=== PATIENT | female | born 1990 | race Caucasian/White ===

== ENCOUNTER 2018-02-18 06:06 | Day surgery (SDC) | payer OTHER, BC ==
[~2018-02-18 06:06] MED LIST: Lidocaine 1%/Sod Bicarbonate in NS 8.4% 1 ML Syringe IDERM PRN; Sodium Chloride 0.9% 10 ML Syringe FLUSH PRN
[2018-02-18] MEDS: Lactated Ringers 1,000 ML IV SCH ×2 (07:25→12:40)
--- NOTE | 2018-02-18 09:25 | PCM.PREANE ---
Preanesthetic Assessment - Anesthesia/Transfusion/Family Hx Anesthesia History: Prior Anesthesia Without Reaction Family History of Anesthesia Reaction: No Transfusion History: Prior Transfusion Without Reaction - Review of Systems General: No Symptoms Pulmonary: No Symptoms Cardiovascular: No Symptoms Gastrointestinal: No Symptoms Neurological: No Symptoms - Physical Assessment NPO Status Date: 02/17/18 NPO Status Time: 16:30 O2 Sat by Pulse Oximetry: 98 Respiratory Rate: 16 Vital Signs: Last Vital Signs Temp 98.0 F 02/18/18 07:10 Pulse Resp 16 02/18/18 07:10 BP 107/73 02/18/18 07:10 Pulse Ox 98 02/18/18 07:10 Height: 5 ft 6 in Weight: 76.657 kg ASA Class: 1 Mental Status: Alert & Oriented x3 Airway Class: Mallampati = 1 Dentition: Reports: Normal Dentition Thyro-Mental Finger Breadths: 3 Mouth Opening Finger Breadths: 3 ROM/Head Extension: Full Lungs: Clear to Auscultation, Normal Respiratory Effort Cardiovascular: Regular Rate, Regular Rhythm - Allergies Allergies/Adverse Reactions: Allergies Allergy/AdvReac Type Severity Reaction Status Date / Time No Known Allergies Allergy Verified 12/19/16 16:27 - Blood Blood Available: No - Acknowledgements Anesthesia Type Planned: General Anesthesia Pt an Appropriate Candidate for the Planned Anesthesia: Yes Alternatives and Risks of Anesthesia Discussed w Pt/Guardian: Yes Pt/Guardian Understands and Agrees with Anesthesia Plan: Yes PreAnesthesia Questionnaire - Past Health History Medical/Surgical History: Denies Medical/Surgical History Cardiovascular History: Reports: None Respiratory History: Reports: None 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: , Spontaneous , Other (See Below) Other OB/BYN History: D & C in october 2015: abnormal uterine bleeding; "cleaned out fallopian tubes" Oncologic (Cancer) History: Reports: None - Past Surgical History Female Surgical History: Reports: D&C - SUBSTANCE USE Smoking Status *Q: Never Smoker Tobacco Use Within Last Twelve Months: No Second Hand Smoke Exposure: No Days Per Week of Alcohol Use: 0 (seldom) Recreational Drug Use History: No - HOME MEDS Home Medications: Home Meds Vit No.112/Folic Acid [Prenate Chewable Tablet] 1 mg PO DAILY 10/27/15 [History] Ibuprofen 600 mg PO Q4HR PRN #10 tablet 09/16/16 [Rx] - CURRENT (IN HOUSE) MEDS Current Meds: Current Medications Lactated Ringer's (Ringers, Lactated) 1,000 mls @ 125 mls/hr IV ASDIRECTED CLAUDIA Stop: 02/18/18 23:00 Last Admin: 02/18/18 07:25 Dose: 125 mls/hr Lidocaine/Sodium Bicarbonate (Buffered Lidocaine 1% In Ns 8.4%) 0.25 ml IDERM ONETIME PRN PRN Reason: Prior to IV Start Stop: 02/18/18 18:00 Last Admin: 02/18/18 07:24 Dose: 0.25 ml Sodium Chloride (Saline Flush) 10 ml FLUSH ASDIRECTED PRN PRN Reason: Keep Vein Open Stop: 02/18/18 18:00
[2018-02-18] MEDS ORDERED: Dextrose 5% in Water 100 ML ONE (09:41)
[2018-02-18] MEDS ORDERED: Bupivacaine 0.5% 30 ML SDV ONE (09:41)
[2018-02-18] MEDS ORDERED: Methylene Blue 50 MG/10 ML Ampule ONE (09:41)
[2018-02-18] MEDS ORDERED: Ondansetron 4 MG/2 ML SDV ONE (09:45)
[2018-02-18] MEDS ORDERED: Propofol 200 MG/20 ML SDV ONE (09:45)
[2018-02-18] MEDS ORDERED: Rocuronium 50 MG/5 ML Vial ONE (09:45)
[2018-02-18] MEDS ORDERED: ceFAZolin 1 GM Vial ONE (09:46)
[2018-02-18] MEDS ORDERED: Lidocaine 1% 4 ML ONE (09:46)
[2018-02-18] MEDS ORDERED: Midazolam 1 MG/ML 2 ML SDV ONE (09:46)
[2018-02-18] MEDS ORDERED: fentaNYL 250 MCG/5 ML SDV ONE (09:46)
[2018-02-18] MEDS ORDERED: ePHEDrine 50 MG/ML SDV ONE (10:01)
[2018-02-18] MEDS ORDERED: Ketorolac 30 MG/ML SDV ONE ×2 (10:10→11:38)
[2018-02-18] MEDS ORDERED: Lactated Ringers 1,000 ML ONE (10:12)
[2018-02-18] MEDS ORDERED: Dexamethasone 4 MG/ML 5 ML MDV ONE (11:27)
[2018-02-18] MEDS ORDERED: Acetaminophen/oxyCODONE 325-5 MG Tab PO PRN (11:37)
[2018-02-18] MEDS ORDERED: Ondansetron 4 MG/2 ML SDV IVPUSH PRN (11:37)
[2018-02-18] MEDS ORDERED: fentaNYL 100 MCG/2 ML SDV IVPUSH PRN (11:50)
--- NOTE | 2018-02-18 11:51 | PCM.POSTAN ---
POST ANESTHESIA ASSESSMENT - MENTAL STATUS Mental Status: Somnolent - VITAL SIGNS Pulse Rate: 97 SaO2: 97 Resp Rate: 13 Blood Pressure: 118/74 Temperature: 36.7 C - RESPIRATORY Respiratory Status: Respiratory Rate WNL, Airway Patent, O2 Saturation Stable, Supplemental Oxygen - CARDIOVASCULAR CV Status: Pulse Rate WNL, Blood Pressure Stable - GASTROINTESTINAL GI Status: No Symptoms - PAIN Pain Score: 0 - POST OP HYDRATION Hydration Status: Adequate & Stable - OBSERVATIONS Free Text/Narrative:: no anesthesia complications noted
--- NOTE | 2018-02-18 11:58 | PCM.OPNOTE ---
- General Post-Op/Procedure Note Date of Surgery/Procedure: 02/18/18 Operative Procedure(s): Laparoscopy with chromotubation Findings: Floaters bilaterally were patent. The uterus looked normal. There is no evidence of endometriosis. The anterior posterior cul-de-sacs were normal in appearance. The appendix was flaccid and normal. Liver edge was normal. Pre Op Diagnosis: 1. Secondary infertility. 2. Recurrent loss Post-Op Diagnosis: Same Anesthesia Technique: General ET Tube Other Anesthesia Type: Marcaine 0.5%proxy 3-5 mL at each port site. Primary Surgeon: Christo Loza Secondary Surgeon: Phill Lopez Anesthesia Provider: Pranay Wood Retail Operations Manager: Enzo Beltran Reason Retail Operations Manager Was Necessary: Assistants, retraction, patient safety, quality of care Role of Retail Operations Manager: Retraction and assistance Fluid Replacement, Intraop: 1,500 Output, Urine Amount: 100 EBL in mLs: 2 Drain/Tube Comments:: Indwelling bladder catheter during surgery only Complications: None Condition: Good Free Text/Narrative:: Surgery duration: 18 minutes Procedure: The patient was taken to the operating room and placed in supine position on the operating table. Patient was administered 2 g of Ancef preoperatively for infection prophylaxis and had sequential compression stockings in place for DVT prophylaxis. She is administered general endotracheal anesthesia. After adequate anesthesia patient was placed in a dorsal lithotomy position and prepped and draped in usual fashion. Indwelling bladder catheter was placed as was a uterine manipulator. Laparoscopy was then performed. The infraumbilical and suprapubic port sites were infiltrated with Marcaine 0.5% approximately 3-5 mL each. The 5 mm incision was made and verres needle was placed into the upper incision and pneumoperitoneum was established without problems. The laparoscopic sleeve was then placed under direct visualization and the suprapubic port site was developed. The pelvis was evaluated and small wispy adhesions were noted and the area of the appendix and on the left lateral sidewall. These could possibly be a normal reflection of peritoneum. The fallopian tubes appeared to be without adhesions. Methylene blue was instilled into the uterus and was found to spill from both fallopian tubes. There is a paratubal cyst on the right fallopian tube. Is benign in nature and approximate centimeter in diameter. Anterior and posterior cul-de- sacs were found to be normal. Findings otherwise as listed above. At this time time the procedure was discontinued. The laparoscopic sleeve suprapubic area was removed. Pneumoperitoneum was reversed. The upper sleeve was removed. The laparoscopic port site incisions were closed with single interrupted suture of 3-0 Monocryl in a subcuticular fashion. There were further approximated with Dermabond skin glue. Perales catheter and uterine manipulator were removed. Patient was returned to supine position and awakened from general endotracheal anesthesia. She tolerated procedure well and left the operating room in good condition.
[2018-02-18] MEDS ORDERED: Haloperidol Lactate 5 MG/ML SDV IVPUSH PRN (13:13)
[2018-02-18 16:14] VITALS: BP 111/63
== END 2018-02-18 16:05 | disposition home or self-care (01) ==
LOC: JD.SDS 06:06
PROVIDERS: ATTEND Obstetrics & Gynecology
DX: N97.9 Female infertility, unspecified (principal); N96 Recurrent pregnancy loss; Z79.899 Other long term (current) drug therapy
CPT/HCPCS: 49320; 58350; A9270; J0690; J1100; J1630; J1885; J2250; J2405; J3010; J7060; J7120; 00840; J2001; J2704

== ENCOUNTER 2018-12-16 05:27 | Inpatient (IN) | payer BC, OTHER ==
--- NOTE | 2018-12-02 21:53 | PCM.SN ---
- Free Text/Narrative Note: Patient here for decreased movement. Had BPP 8/8 on 11-30-18. Doing better now with more movement. NST reactive. No contractions. Blood sugars have been "acceptable"
[~2018-12-16 05:27] MED LIST changes: +Lactated Ringers 1,000 ML IV SCH; -Lidocaine 1%/Sod Bicarbonate in NS 8.4% 1 ML Syringe IDERM PRN
[2018-12-16] MEDS ORDERED: Citric Acid/Sodium Citrate Solution 30 ML Cup PO ONE (06:00)
[2018-12-16] MEDS ORDERED: Metoclopramide 10 MG/2 ML SDV IVPUSH ONE (06:00)
[2018-12-16] MEDS ORDERED: ceFAZolin 2 GM in Premix Bag 1 BAG IV ONE (06:00)
[2018-12-16] MEDS ORDERED: Lactated Ringers 2,000 ML ONE (06:37)
[2018-12-16] MEDS ORDERED: Oxytocin 10 Units/1 ML SDV ONE ×2 (06:37→09:19)
[2018-12-16] MEDS ORDERED: ceFAZolin 1 GM Vial ONE (06:37)
[2018-12-16] MEDS ORDERED: Ondansetron 4 MG/2 ML SDV ONE (06:37)
[2018-12-16] MEDS ORDERED: Ketorolac 30 MG/ML SDV ONE (06:37)
[2018-12-16] MEDS ORDERED: Phenylephrine/Normal Saline 100 MCG/ML 10 ML Syringe ONE (06:37)
[2018-12-16] MEDS ORDERED: Morphine PF 1 MG/ML Amp ONE (06:38)
[2018-12-16] MEDS ORDERED: Bupivacaine 0.5% 30 ML SDV ONE (06:41)
--- NOTE | 2018-12-16 06:50 | HP ---
DATE OF ADMISSION: 12/16/2018 ADMISSION DIAGNOSES: 38-0/7 week intrauterine , history of 4 losses, breech presentation, primary section. HISTORY OF PRESENT ILLNESS: The patient is a 28-year-old 5, para 0-0-4-0 white female with an REINIER of 12/30/2018, admitted for elective primary section. She is noted to have breech presentation by Lamberto maneuvers and by ultrasound. She also has history of 4 previous spontaneous miscarriages in 1st trimester. The procedure of section, its risks, benefits, alternatives of care including an attempt at vaginal breech versus an attempt at external cephalic version were all discussed with the patient. She appears to understand and wishes to proceed. Consent is signed. 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 REINIER 12/30/2018 based upon an early ultrasound done at 5-6/7 weeks' gestational age on 05/05/2018. It is supported by multiple ultrasounds done since that time as the patient was having weekly BPPs throughout the whole last 10 weeks of the . The patient declined genetic evaluation. Her [place] depression screen score on 10/11/2018 was 5/30. The patient had flu vaccination administered on 09/13/2018. She has a history of gestational diabetes and has been on glyburide 2.5 mg p.o. daily at bedtime with good results. She has also had some iron deficiency and has been on ferrous sulfate 325 mg p.o. 3 times daily with food. She is felt to have questionable intrauterine growth restriction. This has improved towards the end of the here. She also had low progesterone at the beginning of the and was supplemented with progesterone vaginally. She underwent betamethasone therapy to improve the chances of lung maturation in the baby. She plans to bottle-feed. COURSE: The patient was first seen very early in the at approximately 7 weeks and 6 days. She made good fundal height growth during the course of the . Weight went from 174 up to 202.6 pounds for a 28.6-pound weight gain. Her vital signs remained stable throughout the . She reported good activity and testing with biophysical profiles weekly were within normal limits. There were at times slightly decreased JAZZ, but for the most part the patient made fair progress. LABORATORY DATA: Laboratory testingin shows blood to be A positive with a negative antibody screen. First hemoglobin was 13.4 and platelets were 257,000. She is rubella immune. RPR is nonreactive. Urine culture showed no growth after 2 days. Hepatitis B surface antigen and HIV assays were both negative as were Chlamydia and gonorrhea tests. Her second trimester labs showed hemoglobin of 11.2 g/dL and platelets 241,000. Her 1-hour GTT was normal at 91. Group B strep screen is negative. ALLERGIES: None. CURRENT MEDICATIONS: 1. Glyburide 2.5 mg daily. 2. OneTouch Delica lancets. 3. OneTouch culture blue strips. 4. Ferrous sulfate 325 mg p.o. 3 times a day. 5. Kenney aspirin 81 mg dose. 6. vitamins 1 p.o. daily. PAST MEDICAL HISTORY: 1. 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 2. Progesterone deficiency. 3. Seasonal allergies. 4. Some type of urinary tract infection in March 2018 - treated. PAST SURGICAL HISTORY: 1. D and C's for miscarriages, 10/2015 and 07/2016. 2. Laparoscopy, 01/2018. FAMILY HISTORY: Mother is alive and well. Father is alive and well. Two brothers are alive and well. Maternal grandfather is alive and well. Paternal grandmother is alive, but with heart disease. Paternal grandfather is secondary to leukemia. Paternal grandmother is , question on cause. There is a family history of cancer, issues, and anesthesia related issues are not felt to be of concern. Unsure of father's family history. Apparently, grandmother had 3 brothers with MS and 1 sister with MS. SOCIAL HISTORY: The patient is . is Derek Hardy. They live in [place]. She does not use any significant amounts of alcohol, drugs, or tobacco. REVIEW OF SYSTEMS: The patient has no complaints. Baby has been active. SKIN: Negative. HEENT, NECK, AND BACK: Negative. CARDIOVASCULAR: No chest pain or exercise intolerance. RESPIRATORY: No infectious symptoms or shortness of breath. BREASTS: Changes associated with . Manageable. GI: Unremarkable. : Changes associated with . EXTREMITIES/MUSCULOSKELETAL: Occasional bilateral lower extremity edema. Otherwise, unremarkable. NEUROLOGICAL: Unremarkable. PHYSICAL EXAMINATION: GENERAL: The patient is a well-developed, well-nourished, pleasant female, stated age, in no acute distress. She was a centering patient. SKIN: Warm, dry, without lesions. HEENT, NECK, AND BACK: Within normal limits. LUNGS: Clear with good breath sounds in all lung brown. BREASTS: Deferred at this time, having been done at first visit and found to be normal. The patient plans to bottle-feed. ABDOMEN: Protuberant with with fundal height of 37 cm, baby in a breech presentation by Lamberto maneuvers and ultrasound. GENITOURINARY: Last genital exam in clinic showed no evidence of cervical change. EXTREMITIES AND NEUROLOGICAL: Within normal limits. No significant edema noted. ASSESSMENT: 1. Term intrauterine at 38-0/7 weeks' gestational age, admitted for elective primary section because of breech presentation and history of previous losses. 2. Group B strep screen negative. 3. The patient plans to bottle-feed. 4. Routine laboratory testing, SCDs preoperatively and intraoperatively, and applications engineer manufacturing to be in attendance at the time of delivery. PLAN: 1. Primary low uterine segment transverse section through Pfannenstiel skin incision under spinal block. Procedure, risks, benefits, alternatives of care, and followup were discussed in detail with the patient. She appears to understand and wishes to proceed. She has signed a consent. 2. DVT prophylaxis with SCDs. 3. Infection prophylaxis with Ancef 2 g IV preop. 4. CBC, urinalysis, and type and screen for preoperative labs. 5. Lightout Examiner take care of the baby. End dictation on Bernadette Hardy please make copies for [facility] Delivery and make a copy for [facility] in [place]. MMODAL /[id number]
--- NOTE | 2018-12-16 06:58 | PCM.PREANE ---
Preanesthetic Assessment - Anesthesia/Transfusion/Family Hx Anesthesia History: Prior Anesthesia Without Reaction Family History of Anesthesia Reaction: No Transfusion History: No Prior Transfusion(s) Intubation History: Unknown - Review of Systems General: No Symptoms Pulmonary: No Symptoms, Cough Cardiovascular: No Symptoms Gastrointestinal: No Symptoms Neurological: Headache Other: Reports: Easy Bruising, Diabetes (gestational DM) - Physical Assessment NPO Status Date: 12/15/18 NPO Status Time: 21:30 Pulse: 83 O2 Sat by Pulse Oximetry: 97 Respiratory Rate: 16 Blood Pressure: 123/81 Temperature: 36.9 C Vital Signs: Last Vital Signs Temp 36.9 C 12/16/18 05:52 Pulse 83 12/16/18 05:52 Resp 16 12/16/18 05:52 BP 123/81 12/16/18 05:52 Pulse Ox 97 12/16/18 05:52 Height: 1.68 m Weight: 76.657 kg ASA Class: 2 Mental Status: Alert & Oriented x3 Airway Class: Mallampati = 2 Dentition: Reports: Normal Dentition, Caries Thyro-Mental Finger Breadths: 3 Mouth Opening Finger Breadths: 3 ROM/Head Extension: Full Lungs: Clear to Auscultation, Normal Respiratory Effort Cardiovascular: Regular Rate, Regular Rhythm, No Murmurs - Lab Values: Laboratory Last Values WBC 7.55 K/mm3 (3.98-10.04) 12/16/18 06:05 RBC 4.36 M/mm3 (3.98-5.22) 12/16/18 06:05 Hgb 12.0 gm/L (11.2-15.7) 12/16/18 06:05 Hct 36.5 % (34.1-44.9) 12/16/18 06:05 MCV 83.7 fl (79.4-94.8) 12/16/18 06:05 MCH 27.5 pg (25.6-32.2) 12/16/18 06:05 MCHC 32.9 g/dl (32.2-35.5) 12/16/18 06:05 RDW Std Deviation 48.4 fL (36.4-46.3) H 12/16/18 06:05 Plt Count 173 K/mm3 (182-369) L 12/16/18 06:05 MPV 9.9 fl (9.4-12.3) 12/16/18 06:05 Neut % (Auto) 61.3 % (34.0-71.1) 12/16/18 06:05 Lymph % (Auto) 25.4 % (19.3-51.7) 12/16/18 06:05 Wayne % (Auto) 11.0 % (4.7-12.5) 12/16/18 06:05 Eos % (Auto) 1.5 (0.7-5.8) 12/16/18 06:05 Baso % (Auto) 0.3 % (0.1-1.2) 12/16/18 06:05 Neut # (Auto) 4.63 K/mm3 (1.56-6.13) 12/16/18 06:05 Lymph # (Auto) 1.92 K/mm3 (1.18-3.74) 12/16/18 06:05 Wayne # (Auto) 0.83 K/mm3 (0.24-0.36) H 12/16/18 06:05 Eos # (Auto) 0.11 K/mm3 (0.04-0.36) 12/16/18 06:05 Baso # (Auto) 0.02 K/mm3 (0.01-0.08) 12/16/18 06:05 - Allergies Allergies/Adverse Reactions: Allergies Allergy/AdvReac Type Severity Reaction Status Date / Time No Known Allergies Allergy Verified 11/27/18 22:30 - Anesthesia Plan Pre-Op Medication Ordered: None - Acknowledgements Anesthesia Type Planned: Spinal Pt an Appropriate Candidate for the Planned Anesthesia: Yes Alternatives and Risks of Anesthesia Discussed w Pt/Guardian: Yes Pt/Guardian Understands and Agrees with Anesthesia Plan: Yes PreAnesthesia Questionnaire - Past Health History Medical/Surgical History: Denies Medical/Surgical History Cardiovascular History: Reports: None Respiratory History: Reports: None 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: , 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 Other OB/BYN History: D & C in october 2015: abnormal uterine bleeding; "cleaned out fallopian tubes" Endocrine/Metabolic History: Reports: Diabetes, Gestational Hematologic History: Reports: Anemia Oncologic (Cancer) History: Reports: None - Past Surgical History Female Surgical History: Reports: D&C - SUBSTANCE USE Smoking Status *Q: Never Smoker Recreational Drug Use History: No - HOME MEDS Home Medications: Home Meds Aspirin [Halfprin] 81 mg PO DAILY 06/26/18 [History] Ferrous Sulfate [Iron] 1 tab PO DAILY 12/16/18 [History] Vits #93/Iron Fum/FA [ Formula Tablet] 1 tab PO DAILY 12/16/18 [History] glyBURIDE/Metformin HCl [Glyburid-Metformin 1.25-250 mg] 2.5 mg PO DAILY [History] - CURRENT (IN HOUSE) MEDS Current Meds: Current Medications Lactated Ringer's (Ringers, Lactated) 1,000 mls @ 125 mls/hr IV ASDIRECTED CLAUDIA Last Admin: 12/16/18 05:53 Dose: 125 mls/hr Oxytocin 20 unit/ Lactated (Ringer's) 1,002 mls @ 500 mls/hr IV TITRATE CLAUDIA; Protocol Sodium Chloride (Saline Flush) 10 ml FLUSH ASDIRECTED PRN PRN Reason: Keep Vein Open Discontinued Medications Bupivacaine HCl (Marcaine 0.5%) Confirm Administered Dose 30 ml .ROUTE .STK-MED ONE Stop: 12/16/18 06:42 Cefazolin Sodium (Ancef) Confirm Administered Dose 2 gm .ROUTE .STK-MED ONE Stop: 12/16/18 06:38 Citric Acid/Sodium Citrate (Bicitra Solution) 30 ml PO ONETIME ONE Stop: 12/16/18 06:01 Last Admin: 12/16/18 06:01 Dose: 30 ml Cefazolin Sodium/Dextrose 2 gm (/ Premix) 50 mls @ 100 mls/hr IV ONETIME ONE Stop: 12/16/18 06:29 Lactated Ringer's (Ringers, Lactated) Confirm Administered Dose 2,000 mls @ as directed .ROUTE .STK-MED ONE Stop: 12/16/18 06:38 Ketorolac Tromethamine (Toradol) Confirm Administered Dose 30 mg .ROUTE .STK- MED ONE Stop: 12/16/18 06:38 Metoclopramide HCl (Reglan) 10 mg IVPUSH ONETIME ONE Stop: 12/16/18 06:01 Last Admin: 12/16/18 06:01 Dose: 10 mg Morphine Sulfate (Duramorph Pf) Confirm Administered Dose 1 mg .ROUTE .STK-MED ONE Stop: 12/16/18 06:39 Ondansetron HCl (Zofran) Confirm Administered Dose 4 mg .ROUTE .STK-MED ONE Stop: 12/16/18 06:38 Oxytocin (Pitocin) Confirm Administered Dose 10 unit .ROUTE .STK-MED ONE Stop: 12/16/18 06:38 Phenylephrine HCl (Phenylephrine In Ns 100 Mcg/Ml) Confirm Administered Dose 1 mg .ROUTE .STK-MED ONE Stop: 12/16/18 06:38
[2018-12-16] MEDS ORDERED: Ondansetron 4 MG/2 ML SDV IVPUSH PRN (08:00)
[2018-12-16] MEDS ORDERED: diphenhydrAMINE 50 MG/ML SDV IVPUSH PRN (08:00)
[2018-12-16] MEDS ORDERED: HYDROmorphone 0.5 MG/0.5 ML Syringe IVPUSH PRN (08:00)
[2018-12-16] MEDS ORDERED: Haloperidol Lactate 5 MG/ML SDV IVPUSH ONE (08:00)
[2018-12-16] MEDS ORDERED: Phenylephrine 1 MG in Sodium Chloride 0.9% 10 ML IV SCH (08:00)
[2018-12-16] MEDS ORDERED: ePHEDrine 50 MG/ML SDV IVPUSH PRN ×2 (08:00→10:06)
[2018-12-16] MEDS ORDERED: fentaNYL 100 MCG/2 ML SDV IVPUSH PRN (08:00)
--- NOTE | 2018-12-16 08:37 | PCM.POSTAN ---
POST ANESTHESIA ASSESSMENT - MENTAL STATUS Mental Status: Alert - VITAL SIGNS Pulse Rate: 83 SaO2: 96 Resp Rate: 17 Blood Pressure: 111/68 Temperature: 36.6 C - RESPIRATORY Respiratory Status: Respiratory Rate WNL, Airway Patent, O2 Saturation Stable - CARDIOVASCULAR CV Status: Pulse Rate WNL, Blood Pressure Stable - GASTROINTESTINAL GI Status: No Symptoms - POST OP HYDRATION Hydration Status: Adequate & Stable
--- NOTE | 2018-12-16 08:46 | PCM.OPNOTE ---
- General Post-Op/Procedure Note Date of Surgery/Procedure: 12/16/18 Operative Procedure(s): Primary lower uterine segment transverse section through Pfannenstiel skin incision Findings: Baby is in alexus breech presentation. Baby's back to the patient's left. Amniotic fluid was decreased but clear. Uterus tubes and ovaries consistent with term . No abnormalities noted. Pre Op Diagnosis: 1. 38 week intrauterine . 2. Breech presentation. 3. History of recurrent -with losses 4 Post-Op Diagnosis: Same with delivery of a viable, 2810 g (6 pound, 3 ounce) female with Apgars of 8 and 9 at 0804 hrs. on 12/16/2018. Anesthesia Technique: Spinal Other Anesthesia Type: Marcaine 0.5%20 mL local Primary Surgeon: Christo Loza Secondary Surgeon: Phill Lopez Anesthesia Provider: Lara Cooper Reason Mastic Floor Layer Was Necessary: Retraction, assistance, patient safety, quality of care Role of Mastic Floor Layer: Same Fluid Replacement, Intraop: 1,200 Output, Urine Amount: 325 EBL in mLs: 700 Drain/Tube Comments:: Indwelling bladder catheter Complications: None Condition: Good Free Text/Narrative:: Intake & Output 12/15/18 12/16/18 12/16/18 22:59 06:59 14:59 Intake Total 480 Balance 480 Surgery duration: 23 minutes Procedure: The patient is appropriately consented. Patient was transferred to the room and placed in a sitting position. Spinal anesthesia was administered. After confirmation of adequate anesthesia patient was placed in a supine position with a wedge under her right side to facilitate left lateral positioning. The patient was prepped and draped in usual fashion after Perales catheter was placed . The anesthetic was checked and found to be adequate. 20 mL of Marcaine 0.5% was injected locally in the Pfannenstiel incision site. The Pfannenstiel skin incision was then made and carried down through skin, subcutaneous and fascial layers. The fascia was then undermined superiorly and inferiorly to allow for adequate operating room. The recti muscles midline and preperitoneal fat was bluntly dissected. Peritoneal cavity was entered longitudinally. The vesicouterine peritoneum was then incised transversely and bladder flap was developed. Myometrium was incised transversely to the level of the amniotic sac. This incision was extended bilaterally in a blunt fashion. The amniotic sac was then ruptured resulting in clear amniotic fluid. Baby was found to be in a alexus breech presentation. A hand is placed in the low uterine segment and the baby's breech was brought forth through the incision. The baby was completely delivered using fundal pressure and breech extraction technique in a routine fashion. The nose and mouth were bulb suctioned. Baby's cord was clamped x2 cut and baby was handed off to attending airplane designer Dr Amador. Placenta was expressed after cord blood was obtained. Uterus was then exteriorized to allow for easier closure. The cervix was assessed and found to be dilated adequately to allow egress of blood. The uterus was closed in 2 layers. The first layer a running locked suture of 0 Monocryl, the second layer a running locked vertical mattress suture of 0 Monocryl. Tfrkhc-[id number] suture was placed at mid incision to control 1 bleeder. Hemostasis confirmed at this time. Sponge instrument needle counts are correct. The uterus was returned to the abdominal cavity and lateral gutters were cleared of blood. Once again sponge needle counts are correct. The anterior abdominal wall was closed with a #1 PDS suture from angle to angle. The subcutaneous area was found to be free of any bleeders. interrupted sutures of 3-0 Monocryl were used to reapproximate the subcutaneous layer.Skin was closed with a running subcuticular stitch of 3-0 Monocryl in a vertical mattress suture fashion using a Giovanni needle. Prineo mesh/glue was then applied to further approximate the incision. It should be noted that patient received 2 g of Ancef preoperatively for infection prophylaxis and had Pitocin infused after delivery of the placenta to facilitate uterine contraction. She also had sequential compression stockings in place for DVT prophylaxis. Patient was discharged from the operating room in satisfactory condition.
[2018-12-16] MEDS ORDERED: Albuterol 0.083% 2.5 MG/3 ML Neb Soln NEB PRN (08:48)
[2018-12-16] MEDS ORDERED: Lactated Ringers 1,000 ML ONE (09:19)
[2018-12-16] MEDS ORDERED: Docusate Sodium 100 MG Cap PO PRN (10:06)
[2018-12-16] MEDS ORDERED: Lanolin 100% Cream 7 GM Tube TOP PRN (10:06)
[2018-12-16] MEDS ORDERED: Naloxone 0.4 MG/ML SDV IVPUSH PRN (10:06)
[2018-12-16] MEDS ORDERED: Acetaminophen/oxyCODONE 325-5 MG Tab PO PRN (10:06)
[2018-12-16] MEDS ORDERED: Dextrose 5%-Lactated Ringers 1,000 ML IV SCH (10:06)
[2018-12-16] MEDS: Simethicone 80 MG Tab.Chew PO SCH ×4 (10:58→22:41)
[2018-12-16] MEDS: Ondansetron 4 MG/2 ML SDV IV PRN ×2 (10:58→14:56)
[2018-12-16] MEDS: diphenhydrAMINE 50 MG/ML SDV IVPUSH PRN ×2 (12:09→21:24)
[2018-12-16] MEDS: Ibuprofen 800 MG Tab PO SCH ×2 (12:59→21:22)
[2018-12-16] MEDS: Prenatal Multivitamin with Calcium/Folic Acid/Iron Tab PO SCH (14:55)
[2018-12-16] MEDS ORDERED: Metoclopramide 10 MG/2 ML SDV IVPUSH PRN (16:42)
[2018-12-16] MEDS ORDERED: Scopolamine 1.5 MG Transdermal Patch TRDERM PRN (16:42)
[2018-12-16] MEDS: Dextrose 5%-Lactated Ringers 1,000 ML IV SCH (17:03)
[2018-12-17] MEDS: Dextrose 5%-Lactated Ringers 1,000 ML IV SCH (02:10)
[2018-12-17] MEDS: diphenhydrAMINE 50 MG/ML SDV IVPUSH PRN (04:19)
[2018-12-17] MEDS: Ibuprofen 800 MG Tab PO SCH ×3 (05:30→21:05)
[2018-12-17] MEDS: Simethicone 80 MG Tab.Chew PO SCH ×4 (08:28→22:00)
[2018-12-17] MEDS: Prenatal Multivitamin with Calcium/Folic Acid/Iron Tab PO SCH (08:28)
--- NOTE | 2018-12-17 09:12 | PCM.SN ---
- Free Text/Narrative Note: note: Patient is doing well in the period. Minimal lochia, voiding well, ambulated without problems. Nursing without concerns. Patient is afebrile, vital signs are stable. Abdomen is flat, soft, uterus is below the umbilicus and is firm and nontender. Suprapubic to be healing well. No evidence of infection or bleeding. Sounds noted. Legs are nontender. CBC: White blood count is 8.86. Imodium as 9.9. Platelets are 162,000. Assessment: Postop day #1, recovery going well. Plan: Routine care. Patient be discharged home within the next 24- 48 hours.
--- NOTE | 2018-12-17 20:41 | PCM48HPAN ---
Post Anesthesia Note - EVALUATION WITHIN 48HRS OF ANESTHETIC Vital Signs in Normal Range: Yes Patient Participated in Evaluation: Yes Respiratory Function Stable: Yes Airway Patent: Yes Cardiovascular Function Stable: Yes Hydration Status Stable: Yes Pain Control Satisfactory: Yes Nausea and Vomiting Control Satisfactory: Yes (nausea and vomiting yesterday. none today) Mental Status Recovered: Yes Pulse Rate: 67 Resp Rate: 18 Temperature: 99.3 F Blood Pressure: 101/59
[2018-12-18] MEDS: Ibuprofen 800 MG Tab PO SCH (05:20)
[2018-12-18] MEDS: Simethicone 80 MG Tab.Chew PO SCH (08:00)
[2018-12-18] MEDS: Prenatal Multivitamin with Calcium/Folic Acid/Iron Tab PO SCH (08:00)
--- NOTE | 2018-12-18 08:02 | PCM.DCSUM1 ---
Discharge Summary - Hospital Course Free Text/Narrative:: Stephanie is a 28-year-old 5 now para 1041 white femaleWas admitted for elective primary section because of breech presentation, also history of recurrent losses 4 with non-desired to attempt an external cephalic version. Please see admission history and physical. She underwent a primary section on 12/16/2018. She delivered a female infant in a alexus breech presentation via section. Baby had Apgars of 8 and 9, a weight of 2810 g (6 pounds, 3 ounces) and was born at 0804 hrs. on 12/16/2018. Patient had a spinal block for anesthesia. Postoperatively patient has done well. She initially had some nausea but this is controlled with Reglan and scopolamine patch. She is made good bowel bladder and avatar covered. Incision appears to be healing well and is dry. Prineo mesh is still present and the incision. She will have this removed in 2-3 weeks. A she is desiring discharge home. She is bottlefeeding. Her vital signs stable throughout the postoperative course patient has been afebrile. Diagnosis: Stroke: No - Discharge Data Discharge Date: 12/18/18 Discharge Disposition: Home, Self-Care 01 Condition: Good - Patient Summary/Data Operative Procedure(s) Performed: Primary lower uterine segment transverse section through Pfannenstiel skin incision - Patient Instructions Diet: Regular Diet as Tolerated Activity: As Tolerated (No intercourse or tampons until seen back, no lifting greater than 15 pounds. No driving a car times the next week. ) Driving: Do Not Drive ( 1 week ) Wound/Incision Care: Keep Operative Site/Wound Site Clean and Dry Notify Provider of: Fever, Increased Pain, Swelling and Redness, Drainage, Nausea and/or Vomiting - Discharge Plan Home Medications: Home Meds Aspirin [Halfprin] 81 mg PO DAILY 06/26/18 [History] Ferrous Sulfate [Iron] 1 tab PO DAILY 12/16/18 [History] Vits #93/Iron Fum/FA [ Formula Tablet] 1 tab PO DAILY 12/16/18 [History] glyBURIDE/Metformin HCl [Glyburid-Metformin 1.25-250 mg] 2.5 mg PO DAILY [History] Acetaminophen/oxyCODONE [Percocet 325-5 MG] 2 tab PO Q4H PRN #30 tablet [Rx] Ibuprofen [Motrin] 800 mg PO Q8H tablet 12/18/18 [Rx] Vit with Ca/FA/Iron [ Plus Iron] 1 each PO DAILY tablet [Rx] Referrals: Christo Loza MD [Physician] - (Return to clinicDr. Loza or June carbajal CNP, in 3 weeks.) - Discharge Summary/Plan Comment DC Time >30 min.: No Discharge Summary/Plan Comment: Discharge instructions: 1. Discharge home 2. Diet, activity and follow-up discussed with patient. Recommend nursing diet with increased calories and calcium. 3. Precautions given concern increased pain, bleeding, temperature, signs/ symptoms of DVT/PE. 4. Medications per home medication was printed, discussed with and given to the patient. 5. Return to clinic-Dr. Loza or June carbajal CNP-[facility] [place] in 3 weeks. Diagnosis: 1. Term -alexus breech -delivered by primary section Condition: Good - Patient Data Vitals - Most Recent: Last Vital Signs Temp 36.8 C 12/18/18 02:56 Pulse 68 12/18/18 02:56 Resp 14 12/18/18 02:56 BP 113/60 12/18/18 02:56 Pulse Ox 98 12/18/18 02:56 Weight - Most Recent: 76.657 kg I&O - Last 24 hours: Intake & Output 12/17/18 12/18/18 12/18/18 22:59 06:59 14:59 Output Total 600 Balance -600 Med Orders - Current: Current Medications Diphenhydramine HCl (Benadryl) 25 mg IVPUSH Q6H PRN PRN Reason: Itching or Nausea Last Admin: 12/17/18 04:19 Dose: 25 mg Docusate Sodium (Colace) 100 mg PO Q12H PRN PRN Reason: Constipation Emollient Ointment (Lansinoh Hpa) 0 gm TOP ASDIRECTED PRN PRN Reason: Sore Nipples Ephedrine Sulfate (Ephedrine Sulfate) 5 mg IVPUSH SEECOMMENT PRN PRN Reason: Other Dextrose/Lactated Ringer's (Dextrose 5%-Lactated Ringers) 1,000 mls @ 125 mls/ hr IV ASDIRECTED [facility] Last Admin: 12/17/18 02:10 Dose: 125 mls/hr Ibuprofen (Motrin) 800 mg PO Q8H [facility] Last Admin: 12/18/18 05:20 Dose: 800 mg Metoclopramide HCl (Reglan) 10 mg IVPUSH Q6H PRN PRN Reason: Nausea/Vomiting Last Admin: 12/16/18 18:30 Dose: 10 mg Naloxone HCl (Narcan) 0.1 mg IVPUSH SEECOMMENT PRN PRN Reason: Respiratory Depression Ondansetron HCl (Zofran) 4 mg IV Q4H PRN PRN Reason: Nausea/Vomiting Last Admin: 12/16/18 14:56 Dose: 4 mg Oxycodone/Acetaminophen (Percocet 325-5 Mg) 2 tab PO Q4H PRN PRN Reason: Pain (moderate 4-6) Prenat Multivit/[place]/Iron/Folic Ac ( Plus Iron) 1 each PO DAILY [facility] Last Admin: 12/17/18 08:28 Dose: 1 each Scopolamine (Transderm-Scop) 1.5 mg TRDERM Q72H PRN PRN Reason: Nausea/Vomiting Last Admin: 12/16/18 17:05 Dose: 1.5 mg Simethicone (Simethicone) 80 mg PO PCBED [facility] Last Admin: 12/17/18 22:00 Dose: 80 mg Discontinued Medications Albuterol (Proventil Neb Soln) 2.5 mg NEB ONETIME PRN PRN Reason: Cough Stop: 12/16/18 11:30 Last Admin: 12/16/18 09:05 Dose: 2.5 mg Bupivacaine HCl (Marcaine 0.5%) Confirm Administered Dose 30 ml .ROUTE .STK-MED ONE Stop: 12/16/18 06:42 Last Admin: 12/16/18 08:01 Dose: 20 ml Cefazolin Sodium (Ancef) Confirm Administered Dose 2 gm .ROUTE .STK-MED ONE Stop: 12/16/18 06:38 Citric Acid/Sodium Citrate (Bicitra Solution) 30 ml PO ONETIME ONE Stop: 12/16/18 06:01 Last Admin: 12/16/18 06:01 Dose: 30 ml Diphenhydramine HCl (Benadryl) 25 mg IVPUSH Q6H PRN PRN Reason: pruritis Ephedrine Sulfate (Ephedrine Sulfate) 5 mg IVPUSH ASDIRECTED PRN PRN Reason: Hypotension Fentanyl (Sublimaze) 50 mcg IVPUSH Q5M PRN PRN Reason: Pain Haloperidol Lactate (Haldol) 1 mg IVPUSH ONETIME ONE Stop: 12/16/18 08:01 Hydromorphone HCl (Dilaudid) 0.5 mg IVPUSH Q15M PRN PRN Reason: Pain (severe 7-10) Cefazolin Sodium/Dextrose 2 gm (/ Premix) 50 mls @ 100 mls/hr IV ONETIME ONE Stop: 12/16/18 06:29 Lactated Ringer's (Ringers, Lactated) 1,000 mls @ 125 mls/hr IV ASDIRECTED [facility] Last Admin: 12/16/18 05:53 Dose: 125 mls/hr Oxytocin 20 unit/ Lactated (Ringer's) 1,002 mls @ 500 mls/hr IV TITRATE [facility]UD[facility]; Protocol Lactated Ringer's (Ringers, Lactated) Confirm Administered Dose 2,000 mls @ as directed .ROUTE .STK-MED ONE Stop: 12/16/18 06:38 Phenylephrine HCl 1 mg/ Sodium (Chloride) 10.1 mls @ 1 mls/sec IV TITRATE CLAUDIA; Protocol Lactated Ringer's (Ringers, Lactated) Confirm Administered Dose 1,000 mls @ as directed .ROUTE .STK-MED ONE Stop: 12/16/18 09:20 Dextrose/Lactated Ringer's (Dextrose 5%-Lactated Ringers) 1,000 mls @ 125 mls/ hr IV ASDIRECTED [facility] Stop: 12/16/18 18:05 Last Admin: 12/16/18 12:00 Dose: 125 mls/hr Ketorolac Tromethamine (Toradol) Confirm Administered Dose 30 mg .ROUTE .STK- MED ONE Stop: 12/16/18 06:38 Metoclopramide HCl (Reglan) 10 mg IVPUSH ONETIME ONE Stop: 12/16/18 06:01 Last Admin: 12/16/18 06:01 Dose: 10 mg Morphine Sulfate (Duramorph Pf) Confirm Administered Dose 1 mg .ROUTE .STK-MED ONE Stop: 12/16/18 06:39 Ondansetron HCl (Zofran) Confirm Administered Dose 4 mg .ROUTE .STK-MED ONE Stop: 12/16/18 06:38 Ondansetron HCl (Zofran) 4 mg IVPUSH ONETIME PRN PRN Reason: Nausea/Vomiting Oxytocin (Pitocin) Confirm Administered Dose 10 unit .ROUTE .STK-MED ONE Stop: 12/16/18 06:38 Oxytocin (Pitocin) Confirm Administered Dose 10 unit .ROUTE .STK-MED ONE Stop: 12/16/18 09:20 Phenylephrine HCl (Phenylephrine In Ns 100 Mcg/Ml) Confirm Administered Dose 1 mg .ROUTE .STK-MED ONE Stop: 12/16/18 06:38 Sodium Chloride (Saline Flush) 10 ml FLUSH ASDIRECTED PRN PRN Reason: Keep Vein Open
[2018-12-18 10:39] VITALS: BP 114/71
== END 2018-12-18 10:04 | disposition home or self-care (01) | DRG 788 ==
LOC: JD.OB 05:27
PROVIDERS: ADMIT Obstetrics & Gynecology; ATTEND Obstetrics & Gynecology
PROC: 10D00Z1 Extraction of Products of Conception, Low, Open Approach (ICD-10-PCS; principal; 2018-12-16)
PROC: 6A550ZT Pheresis of Cord Blood Stem Cells, Single (ICD-10-PCS; principal; 2018-12-16)
DX: O32.1XX0 Maternal care for breech presentation, not applicable or unspecified (principal); Z37.0 Single live birth; Z3A.38 38 weeks gestation of pregnancy; O24.425 Gestational diabetes mellitus in childbirth, controlled by oral hypoglycemic drugs; O36.5930 Maternal care for other known or suspected poor fetal growth, third trimester, not applicable or unspecified; O99.02 Anemia complicating childbirth; D50.9 Iron deficiency anemia, unspecified; O36.8130 Decreased fetal movements, third trimester, not applicable or unspecified; O90.89 Other complications of the puerperium, not elsewhere classified; R11.2 Nausea with vomiting, unspecified; Z79.899 Other long term (current) drug therapy; Z79.82 Long term (current) use of aspirin
CPT/HCPCS: 01961; 36415; 59025; 82962; 85025; 86592; 86850; 86900; 86901; 94640; 94762; A9270-GY; J0690; J1200; J1885; J2274; J2370; J2405; J2590; J2765; J3490; J7042; J7120

== ENCOUNTER 2020-06-08 12:01 | Emergency (ER) | payer BC, OTHER ==
[2020-06-08] MEDS ORDERED: Sodium Chloride 0.9% 10 ML Syringe FLUSH PRN (12:10)
[2020-06-08 12:14] VITALS: BP 129/88; PULSE 73
--- NOTE | 2020-06-08 12:29 | EDM.PDOC ---
ED HPI GENERAL MEDICAL PROBLEM - General Chief Complaint: WATER ATTENDANT Problem Stated Complaint: SHARP PAIN (8WEEK ) Time Seen by Provider: 06/08/20 12:05 Source of Information: Reports: Patient, Old Records, RN Notes Reviewed History Limitations: Reports: No Limitations - History of Present Illness INITIAL COMMENTS - FREE TEXT/NARRATIVE: Patient is a 29-year-old female who presents to the ED for evaluation of sharp lower abdominal pain. Patient notes she is 8 weeks . 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 WATER ATTENDANT is Dr. Loza. Patient notes that her last menstrual period was April 18. Patient states that since around night, she is having some sharp intermittent pains in her low abdomen, she states nothing really makes it worse, but getting off of her feet makes this feel better. She denies any other sick-like symptoms, fever/chills, cough/shortness of breath, nausea/vomiting/diarrhea, states that her last good bowel movement was yesterday. She denies any dysuria, urinary frequency or urgency. She further denies any vaginal bleeding or discharge. Patient states she has not taken any sort of medication for the pain. Lower Abdomen Pain Score (Numeric/FACES): 6 - Related Data Allergies Allergy/AdvReac Type Severity Reaction Status Date / Time No Known Allergies Allergy Verified 06/08/20 12:13 Home Meds: Home Meds Aspirin [Halfprin] 81 mg PO DAILY 06/26/18 [History] Vit with Ca/FA/Iron [ Plus Iron] 1 each PO DAILY tablet 12/18/18 [Rx] Past Medical History WATER ATTENDANT History: Reports: , Spontaneous (6 spontaneous abortions) : 8 Para: 1 (A-6) Other WATER ATTENDANT History: D & C in october 2015: abnormal uterine bleeding; "cleaned out fallopian tubes" Endocrine/Metabolic History: Reports: Diabetes, Gestational Hematologic History: Reports: Anemia - Past Surgical History Female Surgical History: Reports: D&C Social & Family History - Tobacco Use Smoking Status *Q: Never Smoker Second Hand Smoke Exposure: No - Caffeine Use Caffeine Use: Reports: None - Recreational Drug Use Recreational Drug Use: No ED ROS GENERAL - Review of Systems Review Of Systems: Comprehensive ROS is negative, except as noted in HPI. ED EXAM - Physical Exam Exam: See Below Exam Limited By: No Limitations General Appearance: Alert, WD/WN, No Apparent Distress Eye Exam: Bilateral Eye: EOMI, Normal Inspection, PERRL Throat/Mouth: Normal Inspection, Normal Lips, Normal Teeth, Normal Gums, Normal Oropharynx, Normal Voice, No Airway Compromise Head: Atraumatic, Normocephalic Neck: Normal Inspection Respiratory/Chest: No Respiratory Distress, Lungs Clear, Normal Breath Sounds, No Accessory Muscle Use, Chest Non-Tender Cardiovascular: Normal Peripheral Pulses, Regular Rate, Rhythm, No Edema, No Murmur GI/Abdominal Exam: Normal Bowel Sounds, No Distention, No Mass, Tender (slight epigastric tenderness, but no obvious lower abdomen tenderness. McBurney point is negative, Rosving's negative.) Heart Tones: Not [place] Movement: Not Appreciated Extremities: Normal Inspection, Normal Capillary Refill Neurological: Alert, Oriented, Normal Cognition, No Motor/Sensory Deficits Psychiatric: Normal Affect, Normal Mood Skin Exam: Warm, Dry, Intact, Normal Color, No Rash Course - Vital Signs Last Recorded V/S: Last Vital Signs Temp 97 F 06/08/20 12:10 Pulse 73 06/08/20 12:10 Resp 16 06/08/20 12:10 BP 129/88 06/08/20 12:10 Pulse Ox 98 06/08/20 12:10 - Orders/Labs/Meds Orders: Active Orders 24 hr Category Date Time Status Peripheral IV Care [RC] . DIRECTED Care 06/08/20 12:11 Active OB Transvaginal [US] Stat Exams 06/08/20 12:11 Taken Sodium Chloride 0.9% [Saline Flush] Med 06/08/20 12:10 Active 10 ml FLUSH ASDIRECTED PRN Peripheral IV Insertion Adult [OM.PC] Stat Oth 06/08/20 12:11 Ordered Medication Orders Sodium Chloride (Saline Flush) 10 ml FLUSH ASDIRECTED PRN PRN Reason: Keep Vein Open Labs: Laboratory Tests 06/08/20 06/08/20 06/08/20 Range/Units 12:32 12:32 12:32 WBC 6.70 (3.98-10.04) K/mm3 RBC 4.77 (3.98-5.22) M/mm3 Hgb 12.5 D (11.2-15.7) gm/dl Hct 37.6 (34.1-44.9) % MCV 78.8 L D (79.4-94.8) fl MCH 26.2 (25.6-32.2) pg MCHC 33.2 (32.2-35.5) g/dl RDW Std Deviation 40.5 (36.4-46.3) fL Plt Count 255 D (182-369) K/mm3 MPV 9.8 (9.4-12.3) fl Neut % (Auto) 60.4 (34.0-71.1) % Lymph % (Auto) 26.9 (19.3-51.7) % [place] % (Auto) 9.3 (4.7-12.5) % Eos % (Auto) 3.0 (0.7-5.8) Baso % (Auto) 0.4 (0.1-1.2) % Neut # (Auto) 4.05 (1.56-6.13) K/mm3 Lymph # (Auto) 1.80 (1.18-3.74) K/mm3 [place] # (Auto) 0.62 H (0.24-0.36) K/mm3 Eos # (Auto) 0.20 (0.04-0.36) K/mm3 Baso # (Auto) 0.03 (0.01-0.08) K/mm3 HCG, Quant 40058.0 mIU/mL Urine Color (Yellow) Urine Appearance (Clear) Urine pH (5.0-8.0) Ur Specific [place] (1.005-1.030) Urine Protein (Negative) Urine Glucose (UA) (Negative) Urine Ketones (Negative) Urine Occult Blood (Negative) Urine Nitrite (Negative) Urine Bilirubin (Negative) Urine Urobilinogen (0.2-1.0) Ur Leukocyte Esterase (Negative) Urine RBC (0-5) /hpf Urine WBC (0-5) /hpf Ur Epithelial Cells (0-5) /hpf Urine Bacteria (FEW) /hpf Urine Mucus (FEW) /hpf Blood Type A POSITIVE Gel Antibody Screen Negative 06/08/20 Range/Units 12:40 WBC (3.98-10.04) K/mm3 RBC (3.98-5.22) M/mm3 Hgb (11.2-15.7) gm/dl Hct (34.1-44.9) % MCV (79.4-94.8) fl MCH (25.6-32.2) pg MCHC (32.2-35.5) g/dl RDW Std Deviation (36.4-46.3) fL Plt Count (182-369) K/mm3 MPV (9.4-12.3) fl Neut % (Auto) (34.0-71.1) % Lymph % (Auto) (19.3-51.7) % [place] % (Auto) (4.7-12.5) % Eos % (Auto) (0.7-5.8) Baso % (Auto) (0.1-1.2) % Neut # (Auto) (1.56-6.13) K/mm3 Lymph # (Auto) (1.18-3.74) K/mm3 [place] # (Auto) (0.24-0.36) K/mm3 Eos # (Auto) (0.04-0.36) K/mm3 Baso # (Auto) (0.01-0.08) K/mm3 HCG, Quant mIU/mL Urine Color Yellow (Yellow) Urine Appearance Clear (Clear) Urine pH 6.5 (5.0-8.0) Ur Specific [place] 1.015 (1.005-1.030) Urine Protein Negative (Negative) Urine Glucose (UA) Negative (Negative) Urine Ketones Negative (Negative) Urine Occult Blood Negative (Negative) Urine Nitrite Negative (Negative) Urine Bilirubin Negative (Negative) Urine Urobilinogen 0.2 (0.2-1.0) Ur Leukocyte Esterase 1+ H (Negative) Urine RBC 0-5 (0-5) /hpf Urine WBC 0-5 (0-5) /hpf Ur Epithelial Cells 0-5 (0-5) /hpf Urine Bacteria Few (FEW) /hpf Urine Mucus Few (FEW) /hpf Blood Type Gel Antibody Screen Meds: Medications Generic Name Dose Route Start Last Admin Trade Name Freq PRN Reason Stop Dose Admin Sodium Chloride 10 ml 06/08/20 12:10 Saline Flush FLUSH ASDIRECTED PRN Keep Vein Open - Re-Assessments/Exams Free Text/Narrative Re-Assessment/Exam: 06/08/20 12:30 Patient presents to the ED for the evaluation of her lower abdominal pain, along with being 8 weeks . We will get transvaginal ultrasound, and basic labs to evaluate for intrauterine , versus otherwise. Also urinalysis to rule out bladder infection of sorts. 06/08/20 13:41 Urinalysis is not suggestive of UTI, hCG is 18,236, patient's blood type is a positive. Ultrasound is done, demonstrating a single living intrauterine gestation, with a gestational sac measuring 1.5 cm. heart rate is 112 bpm. There are 2 small subchorionic hemorrhages present measuring 1.7 x 0.7 x 1.6 cm and 2.4 x 0.5 x 0.8 cm. Average gestational age is 6 weeks 0-days noted on ultrasound. There is also a right ovarian cyst present measuring 2.5 x 2.5 x 2.0 cm, and a small left adnexal cyst measuring 1.9 x 1.8 x 1.9 cm. Departure - Departure Time of Disposition: 13:42 Disposition: Home, Self-Care 01 Condition: Good Clinical Impression: Abdominal pain affecting - Discharge Information *PRESCRIPTION DRUG MONITORING PROGRAM REVIEWED*: No *COPY OF PRESCRIPTION DRUG MONITORING REPORT IN PATIENT SCARLET: No Instructions: Abdominal Pain During , [id number] Referrals: Christo Loza MD [Primary Care Provider] - Forms: ED Department Discharge, ED Return to Work/School Form Additional Instructions: You were evaluated in the ER today regarding your abdominal pain in . You did have some labs drawn, and these were within normal limits, your hCG level was 18,236 , your blood type is A+. Your ultrasound demonstrated a single intrauterine gestation with a heart rate of 112 bpm. Ultrasound also demonstrated a gestational age of around 6 weeks 0 days. There is also 2 small subchorionic hemorrhages present, one measuring 1.7 x 0.7 x 1.6 cm, and 2.4 x 0.5 x 0.8 cm. There are also 2 ovarian cysts identified, one on the right ovary measuring 2.5 x 2.5 x 2.0 cm. And 1 on the left adnexa, or fallopian tube, measuring 1.9 x 1.8 x 1.9 cm. This could be causing some of the pain as well, you can try 650 mg Tylenol every 6 hours as needed for further pain relief. Do not exceed 4000 mg Tylenol in a 24-hour time span. Recommend that you do not lift anything heavier than a gallon of milk (5 lbs), do not engage in sexual activities, try to get as much pelvic rest as possible for the next few days. Please try not to exert yourself, rest and relax, and take it easy. If you are bleeding through more than 1-2 maxi pads every couple hours, this would be cause for concern to return to the ER for immediate management. Please follow up with your WATER ATTENDANT at your next scheduled appointment. You did indicate that this is on 12 June. Please return to the ED at any time if your symptoms change or worsen. Sepsis Event Note (ED) - Evaluation Sepsis Screening Result: No Definite Risk - Focused Exam Vital Signs: Vital Signs Temp Pulse Resp BP Pulse Ox 06/08/20 12:10 97 F 73 16 129/88 98 - My Orders Last 24 Hours: My Active Orders 06/08/20 12:10 Sodium Chloride 0.9% [Saline Flush] 10 ml FLUSH ASDIRECTED PRN 06/08/20 12:11 Peripheral IV Care [RC] . DIRECTED OB Transvaginal [US] Stat Peripheral IV Insertion Adult [OM.PC] Stat - Assessment/Plan Last 24 Hours: My Active Orders 06/08/20 12:10 Sodium Chloride 0.9% [Saline Flush] 10 ml FLUSH ASDIRECTED PRN 06/08/20 12:11 Peripheral IV Care [RC] . DIRECTED OB Transvaginal [US] Stat Peripheral IV Insertion Adult [OM.PC] Stat
--- NOTE | 2020-06-10 06:48 | US ---
1st trimester obstetrical ultrasound: Multiple real-time images were obtained transvaginally. Comparison: No previous study for current . Dates: LMP: LMP given as 04/18/20, REINIER 01/23/21, gestational 8 7 weeks 2 days Current ultrasound: REINIER 02/01/21, gestational 8 6 weeks 0 days Single intrauterine gestational sac is seen. Small pole and yolk sac are noted. 2 small subchorionic hemorrhages are noted. Small adnexal cyst measuring 1.9 cm. Small amount of free fluid is seen. Maternal adnexa and ovaries are otherwise unremarkable. Measurements: [place]-rump length: 0.36 cm - 6 weeks 0 days Heart rate: 112 bpm Impression: 1. Single intrauterine gestation. Dates as noted above. 2. Other findings which are most likely be incidental as described above. 3. Low heart rate most likely relating to gestational age. Diagnostic code #2 This report was dictated in MDT I agree with preliminary report from [facility], finalized on 06/08/20, 2:34 PM Central Daylight Time
== END 2020-06-08 14:00 | disposition home or self-care (01) ==
LOC: JD.ED 12:01
DX: O99.89 Other specified diseases and conditions complicating pregnancy, childbirth and the puerperium (principal); R10.30 Lower abdominal pain, unspecified; Z79.82 Long term (current) use of aspirin; Z3A.08 8 weeks gestation of pregnancy
CPT/HCPCS: 36415; 76817; 76817-26; 81001; 84702; 85025; 86850; 86900; 86901; 99283; 99284-25

== ENCOUNTER 2020-06-23 12:49 | Emergency (ER) | payer BC ==
[~2020-06-23 12:49] MED LIST changes: -Lactated Ringers 1,000 ML IV SCH; +Misoprostol 200 MCG Tab ONE; -Sodium Chloride 0.9% 10 ML Syringe FLUSH PRN
[2020-06-23] MEDS ORDERED: Sodium Chloride 0.9% 10 ML Syringe FLUSH PRN (13:05)
[2020-06-23] MEDS ORDERED: HYDROmorphone 0.5 MG/0.5 ML Syringe IVPUSH ONE ×3 (13:10→15:44)
[2020-06-23] MEDS ORDERED: Ondansetron 4 MG/2 ML SDV IVPUSH ONE ×2 (13:10→15:44)
[2020-06-23] MEDS ORDERED: Sodium Chloride 0.9% 1,000 ML IV SCH ×2 (13:15→15:15)
--- NOTE | 2020-06-23 13:31 | EDM.PDOC ---
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 Symptoms began about 20 minutes prior to coming to ER. She states the bleeding was substantial enough to fill her underwear. Cramping began at the same time as the bleeding. 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 States her last miscarriage was about 2 years ago. She was seen in this emergency department about 2 weeks ago with complaints of sharp pelvic pain, but had no bleeding at that time. She did see her PETROLOGY TEACHER, Dr. Loza, on 12 June to confirm viability of the . She was told that everything was okay at that time. She denies any other symptoms including lightheadedness, fever, chills, nausea, vomiting, or diarrhea. 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 Denies: Fever, Chills HEENT: Reports: No Symptoms Respiratory: Reports: No Symptoms Cardiovascular: Reports: No Symptoms Endocrine: Reports: No Symptoms GI/Abdominal: Reports: No Symptoms : Reports: Other (Vaginal bleeding and pelvic cramping) Musculoskeletal: Reports: No Symptoms Skin: Reports: No Symptoms Neurological: Reports: No Symptoms Psychiatric: Reports: No Symptoms Hematologic/Lymphatic: Reports: No Symptoms Immunologic: Reports: No Symptoms ED EXAM - Physical Exam Exam: See Below Exam Limited By: No Limitations General Appearance: Alert, Moderate Distress Respiratory/Chest: No Respiratory Distress, Lungs Clear, Normal Breath Sounds, No Accessory Muscle Use, Chest Non-Tender Cardiovascular: Normal Peripheral Pulses, Regular Rate, Rhythm, No Edema, No Gallop, No JVD, No Murmur, No Rub (Female) Exam: Other (suprapubic cramping and tenderness. vaginal bleeding.) Neurological: Alert, Oriented, CN II-XII Intact, Normal Cognition, Normal Gait, Normal Reflexes, No Motor/Sensory Deficits Skin Exam: Warm, Dry, Intact, Normal Color, No Rash Course - Vital Signs Last Recorded V/S: Last Vital Signs Temp 97.6 F 06/23/20 12:56 Pulse 73 06/23/20 15:58 Resp 14 06/23/20 15:58 BP 122/70 06/23/20 15:58 Pulse Ox 95 06/23/20 15:58 Orthostatic Blood Pressure [ 116/87 Standing] Orthostatic Blood Pressure [ 117/79 Sitting] Orthostatic Blood Pressure [ 110/77 Supine] - Orders/Labs/Meds Labs: Laboratory Tests 06/23/20 06/23/20 06/23/20 Range/Units 13:14 13:14 13:14 WBC 10.20 H (3.98-10.04) K/mm3 RBC 4.90 (3.98-5.22) M/mm3 Hgb 12.8 (11.2-15.7) gm/dl Hct 38.7 (34.1-44.9) % MCV 79.0 L (79.4-94.8) fl MCH 26.1 (25.6-32.2) pg MCHC 33.1 (32.2-35.5) g/dl RDW Std Deviation 40.7 (36.4-46.3) fL Plt Count 248 (182-369) K/mm3 MPV 9.7 (9.4-12.3) fl Neut % (Auto) 70.6 (34.0-71.1) % Lymph % (Auto) 19.7 (19.3-51.7) % [place] % (Auto) 6.7 (4.7-12.5) % Eos % (Auto) 2.4 (0.7-5.8) Baso % (Auto) 0.5 (0.1-1.2) % Neut # (Auto) 7.21 H (1.56-6.13) K/mm3 Lymph # (Auto) 2.01 (1.18-3.74) K/mm3 [place] # (Auto) 0.68 H (0.24-0.36) K/mm3 Eos # (Auto) 0.24 (0.04-0.36) K/mm3 Baso # (Auto) 0.05 (0.01-0.08) K/mm3 Manual Slide Review Normal smear Sodium 136 (136-145) mEq/L Potassium 3.4 L (3.5-5.1) mEq/L Chloride 101 (98-107) mEq/L Carbon Dioxide 25 (21-32) mEq/L Anion Gap 13.4 (5-15) BUN 6 L (7-18) mg/dL Creatinine 0.7 (0.55-1.02) mg/dL Est Cr Clr Drug Dosing 113.01 mL/min Estimated GFR (MDRD) > 60 (>60) mL/min BUN/Creatinine Ratio 8.6 L (14-18) Glucose 125 H (74-106) mg/dL Calcium 8.5 (8.5-10.1) mg/dL Total Bilirubin 0.4 (0.2-1.0) mg/dL AST 15 (15-37) U/L ALT 22 (14-59) U/L Alkaline Phosphatase 68 (46-116) U/L Total Protein 7.3 (6.4-8.2) g/dl Albumin 3.4 (3.4-5.0) g/dl Globulin 3.9 gm/dL Albumin/Globulin Ratio 0.9 L (1-2) HCG, Quant 83480.0 mIU/mL Blood Type A POSITIVE Gel Antibody Screen 06/23/20 06/23/20 Range/Units 13:14 17:24 WBC (3.98-10.04) K/mm3 RBC (3.98-5.22) M/mm3 Hgb 10.8 L D (11.2-15.7) gm/dl Hct 32.7 L (34.1-44.9) % MCV (79.4-94.8) fl MCH (25.6-32.2) pg MCHC (32.2-35.5) g/dl RDW Std Deviation (36.4-46.3) fL Plt Count (182-369) K/mm3 MPV (9.4-12.3) fl Neut % (Auto) (34.0-71.1) % Lymph % (Auto) (19.3-51.7) % [place] % (Auto) (4.7-12.5) % Eos % (Auto) (0.7-5.8) Baso % (Auto) (0.1-1.2) % Neut # (Auto) (1.56-6.13) K/mm3 Lymph # (Auto) (1.18-3.74) K/mm3 [place] # (Auto) (0.24-0.36) K/mm3 Eos # (Auto) (0.04-0.36) K/mm3 Baso # (Auto) (0.01-0.08) K/mm3 Manual Slide Review Sodium (136-145) mEq/L Potassium (3.5-5.1) mEq/L Chloride (98-107) mEq/L Carbon Dioxide (21-32) mEq/L Anion Gap (5-15) BUN (7-18) mg/dL Creatinine (0.55-1.02) mg/dL Est Cr Clr Drug Dosing mL/min Estimated GFR (MDRD) (>60) mL/min BUN/Creatinine Ratio (14-18) Glucose (74-106) mg/dL Calcium (8.5-10.1) mg/dL Total Bilirubin (0.2-1.0) mg/dL AST (15-37) U/L ALT (14-59) U/L Alkaline Phosphatase (46-116) U/L Total Protein (6.4-8.2) g/dl Albumin (3.4-5.0) g/dl Globulin gm/dL Albumin/Globulin Ratio (1-2) HCG, Quant mIU/mL Blood Type A POSITIVE Gel Antibody Screen Negative Meds: Medications Discontinued Medications Generic Name Dose Route Start Last Admin Trade Name Freq PRN Reason Stop Dose Admin Hydromorphone HCl 0.5 mg 06/23/20 13:10 06/23/20 13:39 Dilaudid IVPUSH 06/23/20 13:11 0.5 mg ONETIME ONE Administration Hydromorphone HCl 0.5 mg 06/23/20 14:09 06/23/20 14:30 Dilaudid IVPUSH 06/23/20 14:10 0.5 mg ONETIME ONE Administration Hydromorphone HCl 0.5 mg 06/23/20 15:44 06/23/20 15:52 Dilaudid IVPUSH 06/23/20 15:45 0.5 mg ONETIME ONE Administration Sodium Chloride 1,000 mls @ 150 mls/hr 06/23/20 13:15 06/23/20 15:50 Normal Saline IV 999 mls/hr ASDIRECTED CLAUDIA Infusion Sodium Chloride 1,000 mls @ 999 mls/hr 06/23/20 15:15 06/23/20 15:59 Normal Saline IV 999 mls/hr ASDIRECTED CLAUDIA Administration Misoprostol 600 mcg 06/23/20 06:00 06/23/20 15:51 Cytotec .XX 06/23/20 06:01 600 mcg ONETIME ONE Administration Misoprostol Confirm 06/23/20 15:48 06/23/20 15:55 Cytotec Administered 06/23/20 15:49 Not Given Dose 600 mcg .ROUTE .STK-MED ONE Ondansetron HCl 4 mg 06/23/20 13:10 06/23/20 13:39 Zofran IVPUSH 06/23/20 13:11 4 mg ONETIME ONE Administration Ondansetron HCl 4 mg 06/23/20 15:44 06/23/20 15:52 Zofran IVPUSH 06/23/20 15:45 4 mg ONETIME ONE Administration Sodium Chloride 10 ml 06/23/20 13:05 06/23/20 13:39 Saline Flush FLUSH 10 ml ASDIRECTED PRN Administration Keep Vein Open - Re-Assessments/Exams Free Text/Narrative Re-Assessment/Exam: 06/23/20 14:20 I was notified by SUZI Watkins that while up to the bathroom, the pt passed what appears to be a ball of tissue into the urine specimen cup. On exam, this appears to be the products of conception. Pt passed this prior to the u/s being completed. She continues to c/o cramping. I have ordered a second dose of Dilaudid 0.5 mg IV. 06/23/20 15:48 Transvaginal ultrasound shows irregular endometrium with no intrauterine gestational sac. Blood is seen moving throughout the endometrial cavity. Pelvic exam was completed. There was a large amount of what appeared to be blood clots versus tissue within the vaginal canal extending through the cervix. Called and spoke with the PETROLOGY TEACHER on-call, Dr. Hopper. She recommended that we give Cytotec 600 mcg buccal at this time. We will watch the patient for a few hours to see if the bleeding lets up. Dr. Hopper advised that if the bleeding does not slow, we should contact her. Discussed this with the patient and she is in agreement. I have also ordered Zofran for nausea and Dilaudid 0.5 mg to be given. 06/23/20 17:10 Patient states that the cramping has subsided significantly. Her bleeding has also improved significantly. She had a scant amount of blood on her pad. We will recheck an H&H. 06/23/20 17:52 Patient's repeat hemoglobin is 10.8. She has received a total of 2 L of IV fluids. She did get up and ambulate to the bathroom without any dizziness or lightheadedness. Blood pressures have been stable throughout her stay in the ER. She is not tachycardic. Her bleeding has improved significantly. She had a small amount of blood on her pad but it was not saturated. She is comfortable going home at this time. We will discharge her home with instructions to return to the emergency department if her bleeding should increase to the point where she is saturating a pad an hour for 2 or more hours or if her cramping should significantly worsen. Recommend that she call her PETROLOGY TEACHER, Dr. Loza, tomorrow to discuss today's occurrences. Return to the ER with any concerns. Discussed pain management with her. She declined the need for pain meds at this time. States she will just use [id number] Tylenol or ibuprofen as needed. Discharge instructions as documented. Departure - Departure Time of Disposition: 17:54 Disposition: Home, Self-Care 01 Condition: Good Clinical Impression: Complete - Discharge Information *PRESCRIPTION DRUG MONITORING PROGRAM REVIEWED*: No *COPY OF PRESCRIPTION DRUG MONITORING REPORT IN PATIENT SCARLET: No Instructions: Miscarriage, [id number] Referrals: Christo Loza MD [Primary Care Provider] - Forms: ED Department Discharge, ED Return to Work/School Form Additional Instructions: You were seen in the emergency department for an abrupt onset of vaginal bleedin g and pelvic cramping. Unfortunately while you are in the emergency department, you did miscarry. Ultrasound was completed and confirmed the miscarriage. While in the ER, you received 2 L of IV fluids, Zofran for nausea, Dilaudid for pain, and Cytotec to contract the uterus in order to improve the vaginal bleeding. By the time of discharge, your cramping had resolved and your vaginal bleeding had drastically improved. As we discussed, if the bleeding should worsen to the point where you are saturating a pad an hour for 2 or more hours, it is imperative that you return to the emergency department. Also, if you begin having significant cramping, I would also recommend that she return to the emergency department. You may use [id number] Tylenol or ibuprofen as needed for discomfort. Recommend that you call Dr. Loza tomorrow morning and let him know of today's occurrences. Follow-up with him as he recommends. Return to the ER with any new or worsening symptoms of concern. Sepsis Event Note (ED) - Evaluation Sepsis Screening Result: No Definite Risk
--- NOTE | 2020-06-23 14:58 | US ---
Obstetrical ultrasound: Multiple real-time images were obtained transvaginally. Technologist's note: Patient unable to tolerate exam, no visualized ovaries are present Endometrium appears somewhat irregular. No intrauterine gestational sac is noted. Blood is seen moving throughout the endometrial cavity. Adnexa appear within normal limits. Ovaries not visualized. Impression: 1. Irregular endometrium with no intrauterine gestational sac. 2. Blood is seen moving throughout the endometrial cavity. Diagnostic code #3 This report was dictated in MDT
[2020-06-23] MEDS ORDERED: Misoprostol 200 MCG Tab ONE (15:48)
[2020-06-23 15:58] VITALS: BP 122/70; PULSE 73
== END 2020-06-23 18:20 | disposition home or self-care (01) ==
LOC: JD.ED 12:49
DX: O03.9 Complete or unspecified spontaneous abortion without complication (principal); Z79.82 Long term (current) use of aspirin
CPT/HCPCS: 36415; 76817; 80053; 84702; 85014; 85018; 85025; 86850; 86900; 86901; 96374; 96375; 96376; 99284; A9270; J1170; J2405; J7030

== ENCOUNTER 2021-01-05 14:51 | Emergency (ER) | payer BC ==
[2021-01-05 15:12] VITALS: BP 133/87; PULSE 73
--- NOTE | 2021-01-05 16:48 | EDM.PDOC ---
ED HPI GENERAL MEDICAL PROBLEM - General Chief Complaint: Abdominal Pain Stated Complaint: SHARP STOMACH PAIN Time Seen by Provider: 01/05/21 16:10 Source of Information: Reports: Patient, RN Notes Reviewed History Limitations: Reports: No Limitations - History of Present Illness INITIAL COMMENTS - FREE TEXT/NARRATIVE: Patient is a 30-year-old female presenting to the emergency department with complaints of intermittent lower abdominal pain that started around 1:00 this afternoon. She describes it as a sharp stabbing pain in her bilateral lower abdomen. Pain is not present at this time. States it comes and goes. Denies any nausea vomiting or diarrhea. She does not think that she could be but she is not currently on control. Denies any abnormal vaginal discharge. She has had no fever or chills. Last bowel movement was around 2 PM today and she states that it was a normal bowel movement for her. abd Pain Score (Numeric/FACES): 6 - Related Data Allergies Allergy/AdvReac Type Severity Reaction Status Date / Time No Known Allergies Allergy Verified 01/05/21 15:11 Home Meds: Home Meds . 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 Denies: Fever, Chills, Weakness HEENT: Reports: No Symptoms Respiratory: Reports: No Symptoms Cardiovascular: Reports: No Symptoms Endocrine: Reports: No Symptoms GI/Abdominal: Reports: Abdominal Pain (Lower abdomen). Denies: Diarrhea, Nausea, Vomiting : Reports: No Symptoms Musculoskeletal: Reports: No Symptoms Skin: Reports: No Symptoms Neurological: Reports: No Symptoms Psychiatric: Reports: No Symptoms Hematologic/Lymphatic: Reports: No Symptoms Immunologic: Reports: No Symptoms ED EXAM, GI/ABD - Physical Exam Exam: See Below General Appearance: Alert, WD/WN, No Apparent Distress Respiratory/Chest: No Respiratory Distress, Lungs Clear, Normal Breath Sounds, No Accessory Muscle Use, Chest Non-Tender Cardiovascular: Normal Peripheral Pulses, Regular Rate, Rhythm, No Edema, No Gallop, No JVD, No Murmur, No Rub GI/Abdominal Exam: Normal Bowel Sounds, Soft, Non-Tender, No Organomegaly, No Distention, No Abnormal Bruit, No Mass, Pelvis Stable Neurological: Alert, Oriented, CN II-XII Intact, Normal Cognition, Normal Gait, Normal Reflexes, No Motor/Sensory Deficits Psychiatric: Normal Affect, Normal Mood Skin Exam: Warm, Dry, Intact, Normal Color, No Rash Course - Vital Signs Last Recorded V/S: Last Vital Signs Temp 97.7 F 01/05/21 15:08 Pulse 73 01/05/21 15:08 Resp 18 01/05/21 15:08 BP 133/87 01/05/21 15:08 Pulse Ox 100 01/05/21 15:08 - Orders/Labs/Meds Orders: Active Orders 24 hr Category Date Time Status Abdomen 2V AP Flat Upright [CR] Stat Exams 01/05/21 16:16 Taken Labs: Laboratory Tests 01/05/21 01/05/21 01/05/21 Range/Units 16:26 16:26 17:15 WBC 7.13 (3.98-10.04) K/mm3 RBC 4.97 (3.98-5.22) M/mm3 Hgb 12.4 D (11.2-15.7) gm/dl Hct 38.0 (34.1-44.9) % MCV 76.5 L (79.4-94.8) fl MCH 24.9 L (25.6-32.2) pg MCHC 32.6 (32.2-35.5) g/dl RDW Std Deviation 39.3 (36.4-46.3) fL Plt Count 271 (182-369) K/mm3 MPV 9.7 (9.4-12.3) fl Neut % (Auto) 55.1 (34.0-71.1) % Lymph % (Auto) 32.7 (19.3-51.7) % [place] % (Auto) 8.0 (4.7-12.5) % Eos % (Auto) 3.8 (0.7-5.8) Baso % (Auto) 0.4 (0.1-1.2) % Neut # (Auto) 3.93 (1.56-6.13) K/mm3 Lymph # (Auto) 2.33 (1.18-3.74) K/mm3 [place] # (Auto) 0.57 H (0.24-0.36) K/mm3 Eos # (Auto) 0.27 (0.04-0.36) K/mm3 Baso # (Auto) 0.03 (0.01-0.08) K/mm3 Sodium 140 (136-145) mEq/L Potassium 4.1 (3.5-5.1) mEq/L Chloride 103 (98-107) mEq/L Carbon Dioxide 29 (21-32) mEq/L Anion Gap 12.1 (5-15) BUN 11 (7-18) mg/dL Creatinine 0.9 (0.55-1.02) mg/dL Est Cr Clr Drug Dosing 87.12 mL/min Estimated GFR (MDRD) > 60 (>60) mL/min BUN/Creatinine Ratio 12.2 L (14-18) Glucose 88 (74-106) mg/dL Calcium 9.2 (8.5-10.1) mg/dL Total Bilirubin 0.3 (0.2-1.0) mg/dL AST 27 (15-37) U/L ALT 43 (14-59) U/L Alkaline Phosphatase 71 (46-116) U/L C-Reactive Protein 0.3 (<1.0) mg/dL Total Protein 7.5 (6.4-8.2) g/dl Albumin 3.8 (3.4-5.0) g/dl Globulin 3.7 gm/dL Albumin/Globulin Ratio 1.0 (1-2) Urine Color Yellow (Yellow) Urine Appearance Clear (Clear) Urine pH 7.0 (5.0-8.0) Ur Specific [place] 1.015 (1.005-1.030) Urine Protein Negative (Negative) Urine Glucose (UA) Negative (Negative) Urine Ketones Negative (Negative) Urine Occult Blood Negative (Negative) Urine Nitrite Negative (Negative) Urine Bilirubin Negative (Negative) Urine Urobilinogen 0.2 (0.2-1.0) Ur Leukocyte Esterase Negative (Negative) Urine RBC 0-5 (0-5) /hpf Urine WBC 0-5 (0-5) /hpf Ur Squamous Epith Cells 0-5 (0-5) /hpf Urine Bacteria Few (FEW) /hpf Urine Mucus Few (FEW) /hpf Urine HCG, Qual (NEGATIVE) 01/05/21 Range/Units 17:15 WBC (3.98-10.04) K/mm3 RBC (3.98-5.22) M/mm3 Hgb (11.2-15.7) gm/dl Hct (34.1-44.9) % MCV (79.4-94.8) fl MCH (25.6-32.2) pg MCHC (32.2-35.5) g/dl RDW Std Deviation (36.4-46.3) fL Plt Count (182-369) K/mm3 MPV (9.4-12.3) fl Neut % (Auto) (34.0-71.1) % Lymph % (Auto) (19.3-51.7) % [place] % (Auto) (4.7-12.5) % Eos % (Auto) (0.7-5.8) Baso % (Auto) (0.1-1.2) % Neut # (Auto) (1.56-6.13) K/mm3 Lymph # (Auto) (1.18-3.74) K/mm3 [place] # (Auto) (0.24-0.36) K/mm3 Eos # (Auto) (0.04-0.36) K/mm3 Baso # (Auto) (0.01-0.08) K/mm3 Sodium (136-145) mEq/L Potassium (3.5-5.1) mEq/L Chloride (98-107) mEq/L Carbon Dioxide (21-32) mEq/L Anion Gap (5-15) BUN (7-18) mg/dL Creatinine (0.55-1.02) mg/dL Est Cr Clr Drug Dosing mL/min Estimated GFR (MDRD) (>60) mL/min BUN/Creatinine Ratio (14-18) Glucose (74-106) mg/dL Calcium (8.5-10.1) mg/dL Total Bilirubin (0.2-1.0) mg/dL AST (15-37) U/L ALT (14-59) U/L Alkaline Phosphatase (46-116) U/L C-Reactive Protein (<1.0) mg/dL Total Protein (6.4-8.2) g/dl Albumin (3.4-5.0) g/dl Globulin gm/dL Albumin/Globulin Ratio (1-2) Urine Color (Yellow) Urine Appearance (Clear) Urine pH (5.0-8.0) Ur Specific [place] (1.005-1.030) Urine Protein (Negative) Urine Glucose (UA) (Negative) Urine Ketones (Negative) Urine Occult Blood (Negative) Urine Nitrite (Negative) Urine Bilirubin (Negative) Urine Urobilinogen (0.2-1.0) Ur Leukocyte Esterase (Negative) Urine RBC (0-5) /hpf Urine WBC (0-5) /hpf Ur Squamous Epith Cells (0-5) /hpf Urine Bacteria (FEW) /hpf Urine Mucus (FEW) /hpf Urine HCG, Qual Negative (NEGATIVE) - Re-Assessments/Exams Free Text/Narrative Re-Assessment/Exam: 01/05/21 17:53 Hematology is grossly unremarkable. WBCs and CRP are normal. test is negative and urinalysis is normal. Abdomen flat and upright showed no acute abnormalities. There is a collection of stool on the right side of the colon which could be contributing to some of her intermittent discomfort. On exam, she has no abdominal tenderness. She has had no recurrence of abdominal pain since she has been here. Discussed that she may use MiraLAX as needed. Discussed return precautions. Discharge instructions as documented. Departure - Departure Time of Disposition: 17:53 Disposition: Home, Self-Care 01 Condition: Good Clinical Impression: Abdominal pain - Discharge Information *PRESCRIPTION DRUG MONITORING PROGRAM REVIEWED*: No *COPY OF PRESCRIPTION DRUG MONITORING REPORT IN PATIENT SCARLET: No Instructions: Abdominal Pain, Adult, [id number] Referrals: PCP,None [Primary Care Provider] - Forms: ED Department Discharge Additional Instructions: You were seen in the emergency department today for intermittent abdominal pain. Work-up included blood work, urinalysis, test, and an x-ray of your abdomen. Results of your work-up were found to be overall normal. There was a small collection of stool in the right side your colon that could be just contributing to your discomfort. Recommend that you continue to monitor your symptoms. You may use MiraLAX if needed to help promote movement of your bowels. If your symptoms should worsen in any way or he begins to spike fevers, recommend returning to the emergency department for reevaluation. Sepsis Event Note (ED) - Evaluation Sepsis Screening Result: No Definite Risk - Focused Exam Vital Signs: Vital Signs Temp Pulse Resp BP Pulse Ox 01/05/21 15:08 97.7 F 73 18 133/87 100 - My Orders Last 24 Hours: My Active Orders 01/05/21 16:16 Abdomen 2V AP Flat Upright [CR] Stat - Assessment/Plan Last 24 Hours: My Active Orders 01/05/21 16:16 Abdomen 2V AP Flat Upright [CR] Stat
--- NOTE | 2021-01-06 12:37 | CR ---
Abdomen: Supine and upright views of the abdomen were obtained. Comparison: Prior abdominal x-ray of 08/20/14. Bowel gas pattern appears normal. No abnormal calcifications or soft tissue abnormality is seen. Minimal scoliosis is noted within the spine. No free air is seen. Visualized lung bases are clear. Impression: 1. Slight scoliosis. 2. Nothing acute is otherwise seen on 2 view chest x-ray. Diagnostic code #2 MTDD
== END 2021-01-05 18:05 | disposition home or self-care (01) ==
LOC: JD.ED 14:51
DX: R10.31 Right lower quadrant pain (principal); R10.32 Left lower quadrant pain
CPT/HCPCS: 36415; 74019; 74019-26; 80053; 81001; 81025; 85025; 86140; 99283; 99284

== ENCOUNTER 2021-09-23 10:42 | Emergency (ER) | payer BC ==
--- NOTE | 2021-09-23 11:53 | EDM.PDOC ---
ED HPI GENERAL MEDICAL PROBLEM - General Chief Complaint: Genitourinary Problem Stated Complaint: 9WKS PG ABDOMINAL PAINS Time Seen by Provider: 09/23/21 11:03 Source of Information: Reports: Patient History Limitations: Reports: No Limitations - History of Present Illness INITIAL COMMENTS - FREE TEXT/NARRATIVE: 31-year-old female presents the emergency department today with complaints of lower abdominal discomfort. Patient states that discomfort started approximately an hour and a half prior to arrival. She states it is like a pins and needle sensation in her suprapubic area. Of note the patient is approximately 9 weeks . She is a 7 para 1. She has had 5 spontaneous abortions. Last menstrual period was on 07/20/2021. Patient denies any abdominal cramping or vaginal bleeding/spotting. She denies any recent fever, chills, vomiting or diarrhea. She states she was slightly nauseated this morning however that has resolved. She denies any urinary symptoms such as frequency, burning or incontinence. Her HOOKER UP is Dr. Loza. She states she is otherwise healthy. Lower Pelvic Pain Score (Numeric/FACES): 5 - Related Data Allergies Allergy/AdvReac Type Severity Reaction Status Date / Time No Known Allergies Allergy Verified 09/23/21 11:05 Home Meds: Home Meds Aspirin [Aspirin EC] 81 mg PO DAILY 09/23/21 [History] Pnv No.95/Ferrous Fum/Folic AC [ Caplet] 1 tab PO DAILY 09/23/21 [History] Progesterone, Micronized [Progesterone] 0 mg PO BID 09/23/21 [History] cephALEXin [Keflex] 500 mg PO BID #13 cap 09/23/21 [Rx] Past Medical History - Past Health History Medical/Surgical History: Denies Medical/Surgical History HEENT History: Reports: Impaired Vision Other HEENT History: wears eyeglasses. Cardiovascular History: Reports: None Respiratory History: Reports: None Genitourinary History: Reports: UTI, Recurrent HOOKER UP History: Reports: , Spontaneous Other HOOKER UP History: D & C in october 2015: abnormal uterine bleeding; "cleaned out fallopian tubes" Endocrine/Metabolic History: Reports: Diabetes, Gestational Hematologic History: Reports: Anemia Oncologic (Cancer) History: Reports: None - Infectious Disease History Infectious Disease History: Reports: None - Past Surgical History Female Surgical History: Reports: D&C Social & Family History - Tobacco Use Tobacco Use Status *Q: Never Tobacco User Second Hand Smoke Exposure: No - Caffeine Use Caffeine Use: Reports: Coffee - Recreational Drug Use Recreational Drug Use: No ED ROS GENERAL - Review of Systems Review Of Systems: Comprehensive ROS is negative, except as noted in HPI. ED EXAM - Physical Exam Exam: See Below Exam Limited By: No Limitations General Appearance: Alert, WD/WN, No Apparent Distress Ears: Normal External Exam, Hearing Grossly Normal Nose: Normal Inspection Throat/Mouth: Normal Inspection, Normal Lips, Normal Voice, No Airway Compromise Head: Atraumatic Neck: Normal Inspection, Supple Respiratory/Chest: No Respiratory Distress, Lungs Clear, Normal Breath Sounds, No Accessory Muscle Use, Chest Non-Tender Cardiovascular: Normal Peripheral Pulses, Regular Rate, Rhythm, No Edema, No Murmur GI/Abdominal Exam: Normal Bowel Sounds, Soft, No Distention, Tender (Right lower quadrant tenderness) Rectal Exam: Deferred Movement: Not Appreciated Back Exam: Normal Inspection, Full Range of Motion Extremities: Normal Inspection Neurological: Alert, Oriented, Normal Cognition Psychiatric: Normal Affect, Normal Mood Skin Exam: Warm, Dry, Intact, Normal Color, No Rash Lymphatic: No Adenopathy Course - Vital Signs Text/Narrative:: Upon exam, patient is hemodynamically stable. She does have a small amount of tenderness noted to the right lower quadrant with palpation. Physical exam is otherwise unremarkable. Will obtain a urinalysis with micro and culture if indicated. Last Recorded V/S: Last Vital Signs Temp 96.7 F L 09/23/21 10:45 Pulse 86 09/23/21 10:45 Resp 16 09/23/21 10:45 BP 137/89 09/23/21 10:45 Pulse Ox 98 09/23/21 10:45 - Orders/Labs/Meds Orders: Active Orders 24 hr Category Date Time Status CULTURE URINE [MREF] Stat Lab 09/23/21 10:55 Received Labs: Laboratory Tests 09/23/21 Range/Units 10:55 Urine Color Yellow (Yellow) Urine Appearance Clear (Clear) Urine pH 6.0 (5.0-8.0) Ur Specific [place] > or = 1.030 (1.005-1.030) Urine Protein Negative (Negative) Urine Glucose (UA) Negative (Negative) Urine Ketones Negative (Negative) Urine Occult Blood Negative (Negative) Urine Nitrite Negative (Negative) Urine Bilirubin Negative (Negative) Urine Urobilinogen 0.2 (0.2-1.0) Ur Leukocyte Esterase 1+ H (Negative) Urine RBC 0-5 (0-5) /hpf Urine WBC 5-10 H (0-5) /hpf Ur Squamous Epith Cells 5-10 H (0-5) /hpf Urine Bacteria Moderate H (FEW) /hpf Urine Mucus Many H (FEW) /hpf - Re-Assessments/Exams Free Text/Narrative Re-Assessment/Exam: 09/23/21 12:29 Urinalysis reveals 1+ leukocyte esterase, 5-10 WBC, 5-10 epithelial cells, moderate bacteria, many mucus, urine culture is pending. Patient will be started on Keflex 500 mg twice daily for 7 days. It is recommended she follow-up with her primary care provider when she has completed her course of antibiotics to be sure the infection has cleared up. Departure - Departure Time of Disposition: 12:35 Disposition: Home, Self-Care 01 Condition: Good Clinical Impression: UTI, Urinary tract infectious disease - Discharge Information Prescriptions: cephALEXin [Keflex] 500 mg PO BID #13 cap Referrals: Christo Loza MD [Primary Care Provider] - Forms: ED Department Discharge Additional Instructions: You were seen in the emergency department today with complaints of lower abdominal discomfort. Urinalysis was completed and this did show you have a urinary tract infection. You are given your first dose of antibiotic while in the emergency department. I have sent prescription to your pharmacy for the remaining doses of antibiotic called Keflex. You will need to take it twice daily for a total of 7 days. Recommend that you follow-up with your HOOKER UP or primary care provider once you have completed this course of antibiotic to have a repeat urinalysis completed to be sure the infection has cleared up. Should your condition worsen or change, do not hesitate returning to the emergency department. Sepsis Event Note (ED) - Evaluation Sepsis Screening Result: No Definite Risk - Focused Exam Vital Signs: Vital Signs Temp Pulse Resp BP Pulse Ox 09/23/21 10:45 96.7 F L 86 16 137/89 98 - My Orders Last 24 Hours: My Active Orders 09/23/21 10:55 CULTURE URINE [MREF] Stat - Assessment/Plan Last 24 Hours: My Active Orders 09/23/21 10:55 CULTURE URINE [MREF] Stat
[2021-09-23] MEDS ORDERED: Cephalexin 500 MG Cap PO ONE (12:30)
[2021-09-23 13:05] VITALS: BP 122/87; PULSE 72
== END 2021-09-23 13:04 | disposition home or self-care (01) ==
LOC: JD.ED 10:42
DX: O23.41 Unspecified infection of urinary tract in pregnancy, first trimester (principal); Z3A.09 9 weeks gestation of pregnancy
CPT/HCPCS: 81001; 87086; 99284; A9270; 99283

== ENCOUNTER 2024-04-03 14:06 | Emergency (ER) | payer OTHER ==
[2024-04-03 14:53] LABS: APPEARANCE,URINE CLEAR (Clear); BILIRUBIN,URINE NEGATIVE (Negative); COLOR,URINE YELLOW (Yellow); GLUCOSE,URINE NEGATIVE (Negative); KETONES,URINE NEGATIVE (Negative); LEUKOCYTE ESTERASE,URINE NEGATIVE (Negative); NITRITE,URINE NEGATIVE (Negative); OCCULT BLOOD,URINE NEGATIVE (Negative); PH,URINE 6.5 (5.0-8.0); PROTEIN,URINE NEGATIVE (Negative); UROBILINOGEN,URINE 0.2 (0.2-1.0)
[2024-04-03 15:10] LABS: BASOPHILS ABSOLUTE AUTO 0.1 K/mm3 (0.0-0.2); BASOPHILS PERCENT AUTO 0.8 % (0.0-1.0); EOSINOPHILS ABSOLUTE AUTO 0.2 K/mm3 (0.0-0.4); EOSINOPHILS PERCENT AUTO 2.8 % (0.0-6.0); HEMATOCRIT 41.1 % (37.0-47.0); HEMOGLOBIN 13.9 gm/dl (12.0-16.0); IMMATURE GRAN ABSOLUTE AUTO 0.01 K/mm3 (0.00-0.05); IMMATURE GRAN PERCENT AUTO 0.2 % (0.0-0.4); LYMPHOCYTES ABSOLUTE AUTO 2.6 K/mm3 (1.0-4.8); LYMPHOCYTES PERCENT AUTO 40.1 % (24.0-44.0); MEAN CORPUSCULAR HEMOGLOBIN 28.1 pg (28.0-32.0); MEAN CORPUSCULAR HGB CONC 33.8 g/dl (32.0-36.0); MEAN CORPUSCULAR VOLUME 83.2 fl (83.0-99.0); MEAN PLATELET VOLUME 9.9 fl (9.4-12.3); MONOCYTES ABSOLUTE AUTO 0.6 K/mm3 (0.0-0.8); MONOCYTES PERCENT AUTO 8.4 % (0.0-8.0); NEUTROPHILS ABSOLUTE AUTO 3.1 K/mm3 (1.8-7.7); NEUTROPHILS PERCENT AUTO 47.7 % (41.0-71.0); PLATELET COUNT,PLT 234 K/mm3 (150-400); RED BLOOD CELL COUNT 4.94 M/mm3 (4.10-5.30); WHITE BLOOD CELL COUNT,WBC 6.51 K/mm3 (3.9-11.3)
[2024-04-03 15:37] LABS: A/G RATIO 1.2 (1-2); ALANINE AMINOTRANSFERASE,ALT 27 U/L (14-59); ALKALINE PHOSPHATASE 51 U/L (46-116); ANION GAP 11.6 (5-15); ASPARTATE AMNIOTRANSFERASE,AST 16 U/L (15-37); BILIRUBIN TOTAL 0.3 mg/dL (0.2-1.0); BLOOD UREA NITROGEN,BUN 11 mg/dL (7-18); BUN/CREATININE RATIO 12.2 (14-18); C-REACTIVE PROTEIN 0.14 mg/dL (<0.30); CALCIUM 9.1 mg/dL (8.5-10.1); CARBON DIOXIDE,CO2 28 mEq/L (21-32); CHLORIDE,CL 102 mEq/L (98-107); CREATININE 0.9 mg/dL (0.55-1.02); EST CRCL DRUG DOSING (CG) 84.79 mL/min; ESTIMATED GFR 88 mL/min (>60); GLUCOSE RANDOM 81 mg/dL (70-99); POTASSIUM,K 3.6 mEq/L (3.5-5.1); PROTEIN TOTAL,TP 7.4 g/dl (6.4-8.2); SODIUM,NA 138 mEq/L (136-145)
[2024-04-03 15:40] LABS: HCG QUANTITATIVE < 1.0 mIU/mL
[2024-04-03 16:23] LABS: C. TRACHOMATIS BY PCR NOT DETECTED; N. GONORRHOEAE BY PCR NOT DETECTED
[2024-04-03 18:53] VITALS: BP 134/81; PULSE 71
== END 2024-04-03 17:20 | disposition home or self-care (01) ==
LOC: JD.ED 14:06
DX: N83.201 Unspecified ovarian cyst, right side (principal); Z79.899 Other long term (current) drug therapy; Z86.16 Personal history of COVID-19
CPT/HCPCS: 0352U; 36415; 76830; 80053; 81003; 84702; 85025; 86140; 87491; 87591; 99284

== ENCOUNTER 2024-12-05 09:18 | Day surgery (SDC) | payer OTHER ==
[~2024-12-05 09:18] MED LIST changes: -Misoprostol 200 MCG Tab ONE; +Sodium Chloride 0.9% 10 ML Syringe FLUSH PRN; +Sodium Chloride 0.9% 10 ML Syringe FLUSH SCH
[2024-12-05 09:35] LABS: APPEARANCE,URINE CLEAR (Clear); BILIRUBIN,URINE NEGATIVE (Negative); COLOR,URINE YELLOW (Yellow); GLUCOSE,URINE NEGATIVE (Negative); KETONES,URINE NEGATIVE (Negative); LEUKOCYTE ESTERASE,URINE NEGATIVE (Negative); NITRITE,URINE NEGATIVE (Negative); OCCULT BLOOD,URINE NEGATIVE (Negative); PROTEIN,URINE NEGATIVE (Negative); UROBILINOGEN,URINE 0.2 (0.2-1.0)
[2024-12-05] MEDS ORDERED: Propofol 200 MG/20 ML SDV ONE (09:49)
[2024-12-05] MEDS ORDERED: Rocuronium 50 MG/5 ML Vial ONE (09:49)
[2024-12-05] MEDS ORDERED: Dexamethasone 4 MG/ML 5 ML MDV ONE (09:49)
[2024-12-05] MEDS ORDERED: Lactated Ringers 1,000 ML ONE (09:49)
[2024-12-05] MEDS ORDERED: Ketorolac 30 MG/ML SDV ONE (09:49)
[2024-12-05] MEDS ORDERED: fentaNYL 250 MCG/5 ML SDV ONE (09:49)
[2024-12-05] MEDS ORDERED: Midazolam 1 MG/ML 2 ML SDV ONE (09:49)
[2024-12-05] MEDS ORDERED: dexmedeTOMIDine HCl 200 MCG/2 ML SDV ONE (09:49)
[2024-12-05] MEDS ORDERED: Ondansetron 4 MG/2 ML SDV ONE (09:49)
[2024-12-05] MEDS ORDERED: Lidocaine 1% 4 ML ONE (09:50)
[2024-12-05] MEDS ORDERED: Ondansetron 4 MG/2 ML SDV IVPUSH PRN (09:52)
[2024-12-05] MEDS ORDERED: fentaNYL 100 MCG/2 ML SDV IVPUSH PRN (09:52)
[2024-12-05] MEDS ORDERED: HYDROmorphone 0.5 MG/0.5 ML Syringe IVPUSH PRN (09:52)
[2024-12-05] MEDS: Lactated Ringers 1,000 ML IV SCH (10:03)
[2024-12-05] MEDS: Scopalamine 1mg/3day Transdermal Patch TRDERM ONE (10:05)
[2024-12-05] MEDS ORDERED: ePHEDrine 50 MG/ML SDV ONE (10:25)
[2024-12-05] MEDS: Bupivacaine 0.5% 30 ML SDV ONE (10:43)
[2024-12-05] MEDS: Bupivacaine 0.25% 10 ML SDV ONE (11:07)
[2024-12-05] MEDS: EPINEPHrine 1 MG/ML SDV ONE (11:07)
[2024-12-05] MEDS ORDERED: Sugammadex Sodium 200 MG/2 ML VIAL IV ONE (11:24)
[2024-12-05] MEDS ORDERED: oxyCODONE 5 MG Tab PO PRN (13:04)
[2024-12-05] MEDS: Acetaminophen 325 MG Tab PO PRN (13:51)
[2024-12-05 14:29] VITALS: BP 107/68; PULSE 68
== END 2024-12-05 14:52 | disposition home or self-care (01) ==
LOC: JD.SDS 09:18
PROVIDERS: ATTEND Obstetrics & Gynecology
DX: N83.8 Other noninflammatory disorders of ovary, fallopian tube and broad ligament (principal); K66.0 Peritoneal adhesions (postprocedural) (postinfection); F32.A Depression, unspecified
CPT/HCPCS: 00944; 36415; 81003; 81025; 86850; 86900; 86901; A9270-GY; J0171; J0665; J1100; J1885; J2250; J2405; J2704; J3010; J3490; J7120

== ENCOUNTER 2025-06-10 16:57 | Emergency (ER) | payer OTHER ==
[2025-06-10 17:16] VITALS: BP 164/85; PULSE 106
[2025-06-10 17:45] LABS: BASOPHILS ABSOLUTE AUTO 0.0 K/mm3 (0.0-0.2); BASOPHILS PERCENT AUTO 0.4 % (0.0-1.0); EOSINOPHILS ABSOLUTE AUTO 0.1 K/mm3 (0.0-0.4); EOSINOPHILS PERCENT AUTO 1.2 % (0.0-6.0); IMMATURE GRAN ABSOLUTE AUTO 0.02 K/mm3 (0.00-0.05); IMMATURE GRAN PERCENT AUTO 0.2 % (0.0-0.4); LYMPHOCYTES ABSOLUTE AUTO 0.6 K/mm3 (1.0-4.8); LYMPHOCYTES PERCENT AUTO 6.1 % (24.0-44.0); MEAN PLATELET VOLUME 9.9 fl (9.4-12.3); MONOCYTES ABSOLUTE AUTO 0.6 K/mm3 (0.0-0.8); MONOCYTES PERCENT AUTO 6.1 % (0.0-8.0); NEUTROPHILS ABSOLUTE AUTO 7.9 K/mm3 (1.8-7.7); NEUTROPHILS PERCENT AUTO 86.0 % (41.0-71.0); NRBC ABSOLUTE 0.00 (0.00-0.02); NRBC PERCENT 0.0 % (0.0-0.2); PLATELET COUNT,PLT 210 K/mm3 (150-400); RED BLOOD CELL COUNT 4.83 M/mm3 (4.10-5.30); WHITE BLOOD CELL COUNT,WBC 9.14 K/mm3 (3.9-11.3)
[2025-06-10] MEDS: Sodium Chloride 0.9% 10 ML Syringe FLUSH PRN (18:04)
[2025-06-10] MEDS: Ketorolac 30 MG/ML SDV IVPUSH ONE (18:05)
[2025-06-10] MEDS: Ondansetron 4 MG/2 ML SDV IVPUSH ONE (18:05)
[2025-06-10 18:08] LABS: A/G RATIO 1.2 (1-2); ALANINE AMINOTRANSFERASE,ALT 36.0 U/L (14-59); ASPARTATE AMNIOTRANSFERASE,AST 24.0 U/L (15-37); BILIRUBIN TOTAL 0.6 mg/dL (0.2-1.0); BLOOD UREA NITROGEN,BUN 9.0 mg/dL (7-18); CARBON DIOXIDE,CO2 27.0 mEq/L (21-32); CHLORIDE,CL 100.0 mEq/L (98-107); CREATININE 0.9 mg/dL (0.55-1.02); EST CRCL DRUG DOSING (CG) 77.49 mL/min; ESTIMATED GFR 87.0 mL/min (>60); GLUCOSE RANDOM 118.0 mg/dL (70-99); POTASSIUM,K 3.6 mEq/L (3.5-5.1); PROTEIN TOTAL,TP 7.3 g/dl (6.4-8.2); SODIUM,NA 136.0 mEq/L (136-145)
== END 2025-06-10 19:48 | disposition home or self-care (01) ==
LOC: JD.ED 16:57
DX: J18.9 Pneumonia, unspecified organism (principal); E86.0 Dehydration; Z86.16 Personal history of COVID-19; Z88.8 Allergy status to other drugs, medicaments and biological substances
CPT/HCPCS: 36415; 71045; 80053; 85025; 86140; 87651; 96361; 96374; 96375; 99285; J0696; J1885; J2405; J7030; Q0144; 99283; A9270-GY